=== PATIENT | female | born 1990 | race African-American/Black ===

== ENCOUNTER 2020-01-01 09:46 | Outpatient (REF) | payer MEDICAID, SELFPAY | END 2020-01-01 09:47 | disposition home or self-care (01) | LOC: HO.LAB 09:46 | PROVIDERS: Visit Provider Internal Medicine | DX: Z20.828 Contact with and (suspected) exposure to other viral communicable diseases (principal) | CPT/HCPCS: C9803; U0003 ==

== ENCOUNTER 2020-06-20 16:47 | Emergency (ER) | payer MEDICAID, SELFPAY ==
[2020-06-20 17:12] VITALS: BP 140/75; PULSE 98; RESP 16; TEMP 36.5; O2SAT 98; BMI 35.6
--- NOTE | 2020-06-20 17:35 | ED_ITS ---
HPI - Dental/Oral General Chief complaint: Dental/Oral Stated complaint: DENTAL PAIN Time Seen by Provider: 06/20/20 17:35 History of Present Illness HPI Narrative: Patient complains of right rear lower molar pain, she broke the tooth sometime back and it started hurting a few days, pain is mild, no fever no chills no drooling She is 18 weeks , but all is going well with no vomiting no abdominal pain no pelvic pain no bleeding Related Data Previous Rx's Medication Instructions Recorded penicillin V potassium 500 mg PO QID 7 Days #28 tab 06/20/20 Allergies Allergy/AdvReac Type Severity Reaction Status Date / Time No Known Allergies Allergy Verified 06/20/20 17:17 Review of Systems Review of Systems: Positive for tooth pain Negatives are no fever no chills no dizziness no weakness no difficulty breathing or swallowing no swelling under the tongue no rash no chest pain no shortness of breath no neck pain Yes all other systems are reviewed and are negative PMFSH Past Medical History Source: nursing notes reviewed Social History Social History Alcohol intake: never Smoked in Last 30 Days: No Use of substances other than those prescribed or required for medical reasons: No Any prior treatment program specific to substance use: No Advance Directives: No Advance Directives Information Provided: No Patient : Yes Physical Exam Vital Signs: Vital Signs: Last Vital Signs Temp 97.7 F 06/20/20 17:12 Pulse 98 06/20/20 17:12 Resp 16 06/20/20 17:12 BP 140/75 H 06/20/20 17:12 Pulse Ox 98 06/20/20 17:12 Body Mass Index 35.6 General appearance no acute distress, and cooperative The pharynx is clear with no redness swelling or exudate, mucous membranes are moist Dental exam did have some right back molar tenderness but there is no fluctuant abscess on the gum, there is no facial swelling there is no redness or warmth to the skin there is no drooling the voice is normal, no trismus, no tenderness or swelling under the tongue Skin no rash Course Course Course Narrative: Well-appearing patient with no complaints related to the and does have OB follow-up is prescribed antibiotic recommend follow with dentist and project management engineer doctor and is discharged Discharge Plan Discharge Clinical Impression: Dental caries Patient Disposition: Home, Self-Care Additional Instructions: Follow with dentist Return any time any concerns Prescriptions: New penicillin V potassium 500 mg tablet 500 mg PO QID 7 Days Qty: 28 RF: 0 Interventions: ED Discharge Assessment Last Done: 06/20/20 17:46 Discharge Date/Time: 06/20/20 17:49
== END 2020-06-20 17:49 | disposition home or self-care (01) ==
PROVIDERS: Emergency Provider Emergency Medicine; PCP Family Medicine
DX: K08.89 Other specified disorders of teeth and supporting structures (principal); K02.9 Dental caries, unspecified
CPT/HCPCS: 99283; 99284

== ENCOUNTER 2020-10-05 21:54 | Emergency (ER) | payer MEDICAID, SELFPAY ==
[2020-10-05 22:14] VITALS: BP 135/61; PULSE 104; RESP 18; TEMP 36.7; O2SAT 98; BMI 37.2
[2020-10-05 23:15] LABS: Influenza A PCR NEGATIVE (Negative); Influenza B PCR NEGATIVE (Negative); Resp Syncy Virus RNA Qual PCR NEGATIVE (Negative); SARS COV2 PCR INHOUSE NEGATIVE (Negative)
--- NOTE | 2020-10-05 23:41 | ED_ITS ---
HPI - Asthma General Chief Complaint: Upper Respiratory Symptoms Stated Complaint: cough Time Seen by Provider: 10/05/20 23:41 Source: patient Mode of arrival: ambulatory History of Present Illness HPI Narrative: 30-year-old female, gravid, , presents with increasing shortness of breath over the past couple of days without associated fevers, chills, nausea, vomiting. Patient states that this has been a regular presentation for her for her asthma exacerbation and states that she generally comes in and receive some steroids with subsequent improvement. Related Data Previous Rx's Medication Instructions Recorded penicillin V potassium 500 mg 500 mg PO QID 7 Days #28 tab 06/20/20 tablet prednisone 20 mg tablet 40 mg PO DAILY 4 Days #8 tab 10/06/20 Allergies Allergy/AdvReac Type Severity Reaction Status Date / Time No Known Allergies Allergy Verified 10/05/20 22:13 Review of Systems Review of Systems: Pertinent positives and negatives as stated in HPI 10 point review of systems is otherwise negative. PMFSH Past Medical History Source: nursing notes reviewed Social History Social History Alcohol intake: never Advance Directives: No Advance Directives Information Provided: Yes Patient : Yes Physical Exam Vital Signs: Vital Signs: Last Vital Signs Temp 98.1 F 10/05/20 22:14 Pulse 104 H 10/05/20 22:14 Resp 18 10/05/20 22:14 BP 135/61 10/05/20 22:14 Pulse Ox 98 10/05/20 22:14 Body Mass Index 37.2 VITAL SIGNS: Reviewed. GENERAL: Well developed, well nourished, in no acute distress. HEAD: Normocephalic/atraumatic EYES: PERRLA, EOMI OROPHARYNX: no oral lesions noted, posterior pharynx clear NECK: Supple, no adenopathy LUNGS: Normal breath sounds with some noted bilateral wheeze on expiration but not tachypneic. SpO2<98> CARDIOVASCULAR: Regular rate and rhythm without noted murmurs ABDOMEN: Gravid, Soft, non-tender, non-distended with bowel sounds. SKIN: Inspection of the skin reveals no rashes NEUROLOGIC: Alert and oriented x 4. Strength and sensation to light touch were grossly intact x 4. Course Course Course Narrative: 30-year-old female with history and clinical presentation most consistent with mild asthma exacerbation and patient will receive Ventolin, 4 puffs as well as 40 mg prednisone. Review of COVID testing is negative. Patient discharged home in stable condition with instructions to follow-up with her primary care provider and global creative chairman on Wednesday. MDM - Asthma Lab Data Labs: Lab Results 10/05/20 Range/Units 22:19 Coronavirus (PCR) NEGATIVE (Negative) Influenza Type A (PCR) NEGATIVE (Negative) Influenza Type B (PCR) NEGATIVE (Negative) RSV RNA Qual (PCR) NEGATIVE (Negative) Discharge Plan Discharge Clinical Impression: Asthma exacerbation Patient Disposition: Home, Self-Care Instructions: Loratadine (By mouth), Fluticasone (Into the nose), Asthma (ED) Additional Instructions: 1. Please consistently use your inhaler for the next 24-48 hours. 2. Recommend starting daily Claritin with Flonase for added asthma control. 3. Follow-up with your global creative chairman and primary care provider on Wednesday for re-evaluation. Return to the ER for acute worsening of your symptoms. Prescriptions: New prednisone 20 mg tablet 40 mg PO DAILY 4 Days Qty: 8 RF: 0 No Action penicillin V potassium 500 mg tablet 500 mg PO QID 7 Days Qty: 28 RF: 0 Referrals: Constance Garza MD [Primary Care Provider] - 2 days
[2020-10-06] MEDS: Albuterol Sulfate 90 MCG 8 GM INHALER 4 PUFF INHALE (00:03)
[2020-10-06] MEDS: predniSONE 20 MG TABLET 40 MG PO (00:03)
--- NOTE | 2020-10-06 00:04 | PC.NURSE ---
pt medicated as per emar.
== END 2020-10-06 00:39 | disposition home or self-care (01) ==
PROVIDERS: Emergency Provider Student in an Organized Health Care Education/Training Program; PCP Family Medicine
DX: J45.901 Unspecified asthma with (acute) exacerbation (principal); Z20.822 Contact with and (suspected) exposure to COVID-19; F17.210 Nicotine dependence, cigarettes, uncomplicated
CPT/HCPCS: 0241U; 36415; 99282; 99283

== ENCOUNTER 2020-10-09 05:53 | Emergency (ER) | payer MEDICAID, SELFPAY ==
--- NOTE | ~2020-10-09 | XR_ITS ---
EXAMINATION: PORTABLE CHEST 1 VIEW CLINICAL INFORMATION: dyspnea 34 weeks . COMPARISON: 09/25/2019. TECHNIQUE: Portable frontal view of the chest was obtained. FINDINGS: Lungs are hypoexpanded with patchy bilateral airspace disease bilaterally. This is new when compared to the prior study. Etiology of this is uncertain. Infectious or inflammatory etiologies would be favored. Atelectasis considered less likely. Cardiac and mediastinal silhouettes within normal limits for size. XR/XR chest 1V IMPRESSION: Patchy bilateral airspace disease seen. Infectious etiology suspected in this setting.
[2020-10-09 06:33] VITALS: BP 135/79; PULSE 113; RESP 18; TEMP 36.9; O2SAT 95; BMI 99.8
--- NOTE | 2020-10-09 06:36 | ED.SOB ---
HPI - SOB/Dyspnea General Chief Complaint: Upper Respiratory Symptoms Stated Complaint: SOB Time Seen by Provider: 10/09/20 06:36 Source: patient Mode of arrival: ambulatory Limitations: no limitations History of Present Illness MD elicited complaint: shortness of breath and cough Pertinent past history: asthma Onset (ago): day(s) (5) Context: other (34 weeks states her asthma has been acting up) Timing: intermittent Severity: moderate Exacerbating factors: exertion (any time she walks she starts coughing and feels short of breath) Relieving factors: rest Known history of: asthma Associated symptoms: cough and wheezing Treatment prior to arrival: other (seen here Wednesday almost completed 5 day course of steroids, uses INH as needed, no neb machine, negative COVID recentyl) Related Data Previous Rx's Medication Instructions Recorded penicillin V potassium 500 mg 500 mg PO QID 7 Days #28 tab 06/20/20 tablet prednisone 20 mg tablet 40 mg PO DAILY 4 Days #8 tab 10/06/20 Allergies Allergy/AdvReac Type Severity Reaction Status Date / Time No Known Allergies Allergy Verified 10/05/20 22:13 [facility] Past Medical History Attestation statement: The following information was validated with the patient. Medical History Asthma Social History Social History (Updated 10/09/20 @ 07:04 by Ankita Castillo DO) Alcohol intake: never Patient Tobacco Use Status: Current someday Tobacco user Advance Directives: No Patient : Yes Physical Exam Vital Signs: Vital Signs: Last Vital Signs Temp 98.5 F 10/09/20 06:33 Pulse 108 H 10/09/20 11:04 Resp 22 H 10/09/20 11:04 BP 130/61 10/09/20 11:04 Pulse Ox 90 L 10/09/20 11:04 Body Mass Index 99.8 Appearance: Alert. Oriented X3. No acute distress. Eyes: Pupils equal, round and reactive to light. pale conjunctiva ENT: Pharynx normal. Neck: Normal inspection. Neck supple. CVS: Normal heart rate and rhythm. Pulses normal. Respiratory: No respiratory distress. Breath sounds coarse on exam Abdomen: Soft and non-tender. gravid uterus Skin: Skin warm and dry. Normal skin color. Normal skin turgor. Extremities: No lower extremity edema. No calf ttp Neuro: Oriented X 3. No motor deficit. No sensory deficit. Course Course Course Narrative: repeat neb ordered, more wheezing after initial neb and feels short of breath, IV steroids ordered WBC count likely reactive to her prednisone dosing at home given CXR repeat PCR sent off as well as cultures, lactic acid started on ceftriaxone and azithromycin for pneumonia - 815am, 92% on RA, placed on 2L NC up to 96% FHT 152, good movement call to [facility] transfer line for pneumonia 917am. Discussion with OB at [facility] - unsure if they can take the patient given closed to medical admits discussed with hospitalist staff at [facility] and accepts transfer - hospitalist [facility] 1039 bed placement called with transfer 12pm MDM - SOB/Dyspnea MDM Narrative Medical decision making narrative: 30 yo female 3 with hx of asthma 34 weeks unvaccinated comes in with c/o shortness of breath x 5 days and cough - she has no CP, she was just negative for COVID, at this time labs, bnp, CXR for pneumonia, CBC for anemia, neb treatment - she doesn't have signs of clinical volume overload, she has no signs of DVT and she has no CP it seems unlikely to be PE. Blood pressure stable as well. Reports no OBGYN complaints Lab Data Result diagrams: 10/09/20 07:17 10/09/20 07:17 Labs: Lab Results 10/09/20 10/09/20 10/09/20 Range/Units 06:58 07:17 07:17 WBC 18.7 H (4.8-10.8) X10*3/uL RBC 3.39 L (4.20-5.50) X10*6/uL Hgb 9.6 L (12.0-16.0) g/dl Hct 28.8 L (37-47) % MCV 85.0 (80-98) fL MCH 28.3 (27.0-33.0) pg MCHC 33.3 (31.0-35.0) g/dl RDW 15.2 (11.0-16.0) % Plt Count 316 (160-400) X10*3/uL MPV 9.8 (9.4-12.3) fL Immature Gran % (Auto) 0.7 H (0.0-0.4) % Neut % (Auto) 75.7 H (45-73) % Lymph % (Auto) 15.2 L (20-40) % [place] % (Auto) 8.2 (2-11) % Eos % (Auto) 0.1 (0-4) % Baso % (Auto) 0.1 (0-2) % Lymph # (Auto) 2.9 (1.2-4.9) X10*3/uL [place] # (Auto) 1.5 H (0.1-1.2) X10*3/uL Eos # (Auto) 0.0 (0.0-0.4) X10*3/uL Baso # (Auto) 0.0 (0.0-0.2) X10*3/uL Abs Immat Gran (auto) 0.14 H (0.00-0.03) X10*3/uL Absolute Neuts (auto) 14.1 H (2.0-8.3) X10*3/uL Absolute Nucleated RBC 0.020 H (0.0-0.012) X10*3/uL Nucleated RBC % (auto) 0.1 (0.0-0.2) /100WBC Smear Tech's Comments VERIFIED Sodium 135 (135-145) mmol/L Potassium 3.1 L (3.3-5.1) mmol/L Chloride 107 (96-108) mmol/L Carbon Dioxide 18 L (22-29) mmol/L Anion Gap 13 (12-20) BUN 4 L (9-16) mg/dL Creatinine 0.57 (0.5-1.4) mg/dL Estim Creat Clear Calc 85.4 Estimated GFR > 60 Random Glucose 102 (60-115) mg/dL Lactic Acid (0.5-2.0) mmol/L Lactic Acid Fup @ 2Hr (0.5-2.0) mmol/L Calcium 9.1 (8.4-10.2) mg/dL Magnesium 1.7 (1.6-2.6) mg/dL Total Bilirubin 0.4 (0.0-1.0) mg/dL Direct Bilirubin < 0.2 (0.0-0.5) mg/dL AST 12 (5-31) U/L ALT 17 (0-31) U/L Alkaline Phosphatase 139 H (39-117) U/L Troponin I High Sens (<3.5-17.0) ng/L B-Natriuretic Peptide (<100) pg/mL Total Protein 6.4 L (6.5-8.0) g/dL Albumin 3.5 (3.5-5.0) g/dL Urine Color Urine Appearance Urine pH (5.0-8.0) Ur Specific [place] (1.005-1.025) Urine Protein (NEG-TRACE) MG/DL Urine Glucose (UA) (NEG) MG/DL Urine Ketones (NEG) MG/DL Urine Blood (NEG) Urine Nitrite (NEG) Ur Leukocyte Esterase (NEG) Urine RBC (0) /HPF Urine WBC (0-4) /HPF Ur Squamous Epith Cells /LPF Urine Bacteria /LPF Coronavirus (PCR) (Negative) COVID-19 (KIERAN) Negative (Negative) COVID-19 Clin Com See Note Influenza Type A (PCR) (Negative) Influenza Type B (PCR) (Negative) RSV RNA Qual (PCR) (Negative) 10/09/20 10/09/20 10/09/20 Range/Units 07:17 07:51 08:23 WBC (4.8-10.8) X10*3/uL RBC (4.20-5.50) X10*6/uL Hgb (12.0-16.0) g/dl Hct (37-47) % MCV (80-98) fL MCH (27.0-33.0) pg MCHC (31.0-35.0) g/dl RDW (11.0-16.0) % Plt Count (160-400) X10*3/uL MPV (9.4-12.3) fL Immature Gran % (Auto) (0.0-0.4) % Neut % (Auto) (45-73) % Lymph % (Auto) (20-40) % [place] % (Auto) (2-11) % Eos % (Auto) (0-4) % Baso % (Auto) (0-2) % Lymph # (Auto) (1.2-4.9) X10*3/uL [place] # (Auto) (0.1-1.2) X10*3/uL Eos # (Auto) (0.0-0.4) X10*3/uL Baso # (Auto) (0.0-0.2) X10*3/uL Abs Immat Gran (auto) (0.00-0.03) X10*3/uL Absolute Neuts (auto) (2.0-8.3) X10*3/uL Absolute Nucleated RBC (0.0-0.012) X10*3/uL Nucleated RBC % (auto) (0.0-0.2) /100WBC Smear Tech's Comments Sodium (135-145) mmol/L Potassium (3.3-5.1) mmol/L Chloride (96-108) mmol/L Carbon Dioxide (22-29) mmol/L Anion Gap (12-20) BUN (9-16) mg/dL Creatinine (0.5-1.4) mg/dL Estim Creat Clear Calc Estimated GFR Random Glucose (60-115) mg/dL Lactic Acid 2.8 H* (0.5-2.0) mmol/L Lactic Acid Fup @ 2Hr (0.5-2.0) mmol/L Calcium (8.4-10.2) mg/dL Magnesium (1.6-2.6) mg/dL Total Bilirubin (0.0-1.0) mg/dL Direct Bilirubin (0.0-0.5) mg/dL AST (5-31) U/L ALT (0-31) U/L Alkaline Phosphatase (39-117) U/L Troponin I High Sens < 3.5 (<3.5-17.0) ng/L B-Natriuretic Peptide 20 (<100) pg/mL Total Protein (6.5-8.0) g/dL Albumin (3.5-5.0) g/dL Urine Color Urine Appearance Urine pH (5.0-8.0) Ur Specific [place] (1.005-1.025) Urine Protein (NEG-TRACE) MG/DL Urine Glucose (UA) (NEG) MG/DL Urine Ketones (NEG) MG/DL Urine Blood (NEG) Urine Nitrite (NEG) Ur Leukocyte Esterase (NEG) Urine RBC (0) /HPF Urine WBC (0-4) /HPF Ur Squamous Epith Cells /LPF Urine Bacteria /LPF Coronavirus (PCR) NEGATIVE (Negative) COVID-19 (KIERAN) (Negative) COVID-19 Clin Com Influenza Type A (PCR) NEGATIVE (Negative) Influenza Type B (PCR) NEGATIVE (Negative) RSV RNA Qual (PCR) NEGATIVE (Negative) 10/09/20 10/09/20 Range/Units 11:05 11:06 WBC (4.8-10.8) X10*3/uL RBC (4.20-5.50) X10*6/uL Hgb (12.0-16.0) g/dl Hct (37-47) % MCV (80-98) fL MCH (27.0-33.0) pg MCHC (31.0-35.0) g/dl RDW (11.0-16.0) % Plt Count (160-400) X10*3/uL MPV (9.4-12.3) fL Immature Gran % (Auto) (0.0-0.4) % Neut % (Auto) (45-73) % Lymph % (Auto) (20-40) % [place] % (Auto) (2-11) % Eos % (Auto) (0-4) % Baso % (Auto) (0-2) % Lymph # (Auto) (1.2-4.9) X10*3/uL [place] # (Auto) (0.1-1.2) X10*3/uL Eos # (Auto) (0.0-0.4) X10*3/uL Baso # (Auto) (0.0-0.2) X10*3/uL Abs Immat Gran (auto) (0.00-0.03) X10*3/uL Absolute Neuts (auto) (2.0-8.3) X10*3/uL Absolute Nucleated RBC (0.0-0.012) X10*3/uL Nucleated RBC % (auto) (0.0-0.2) /100WBC Smear Tech's Comments Sodium (135-145) mmol/L Potassium (3.3-5.1) mmol/L Chloride (96-108) mmol/L Carbon Dioxide (22-29) mmol/L Anion Gap (12-20) BUN (9-16) mg/dL Creatinine (0.5-1.4) mg/dL Estim Creat Clear Calc Estimated GFR Random Glucose (60-115) mg/dL Lactic Acid (0.5-2.0) mmol/L Lactic Acid Fup @ 2Hr 2.0 (0.5-2.0) mmol/L Calcium (8.4-10.2) mg/dL Magnesium (1.6-2.6) mg/dL Total Bilirubin (0.0-1.0) mg/dL Direct Bilirubin (0.0-0.5) mg/dL AST (5-31) U/L ALT (0-31) U/L Alkaline Phosphatase (39-117) U/L Troponin I High Sens (<3.5-17.0) ng/L B-Natriuretic Peptide (<100) pg/mL Total Protein (6.5-8.0) g/dL Albumin (3.5-5.0) g/dL Urine Color YELLOW Urine Appearance CLOUDY Urine pH 6.0 (5.0-8.0) Ur Specific [place] 1.020 (1.005-1.025) Urine Protein TRACE (NEG-TRACE) MG/DL Urine Glucose (UA) NEG (NEG) MG/DL Urine Ketones 15 (NEG) MG/DL Urine Blood NEG (NEG) Urine Nitrite NEG (NEG) Ur Leukocyte Esterase 3+ H (NEG) Urine RBC 1-4 (0) /HPF Urine WBC 10-14 H (0-4) /HPF Ur Squamous Epith Cells 2+ /LPF Urine Bacteria 1+ /LPF Coronavirus (PCR) (Negative) COVID-19 (KIERAN) (Negative) COVID-19 Clin Com Influenza Type A (PCR) (Negative) Influenza Type B (PCR) (Negative) RSV RNA Qual (PCR) (Negative) ECG Data Attestation: I personally reviewed and interpreted this ECG as follows: ECG interpretation date: 10/09/20 ECG interpretation time: 07:36 Interpretation: Rate: 116 Rhythm: sinus tachycardia [place]: normal Normal P waves. Normal EAMON. Normal QRS complex. ST T wave : inverted t waves inf leads, V3 and flat V4-V5 qTC: normal prior studies: no sig change from Sep 2019 The study has been interpreted contemporaneously by me. . Critical Care Time Critical Care Time Critical Care Time: Yes Total Critical Care Time: 60 Attestation: repeat neb treatments, IV antibiotics, transfer to tertiary center I attest to this time spent taking care of the patient Discharge Plan Discharge Clinical Impression: Hypoxia Asthma Qualifiers: Asthma severity: moderate Asthma persistence: persistent Asthma complication type: with acute exacerbation Qualified Code(s): J45.41 - Moderate persistent asthma with (acute) exacerbation Pneumonia Qualifiers: Pneumonia type: due to unspecified organism Laterality: bilateral Lung location: unspecified part of lung Qualified Code(s): J18.9 - Pneumonia, unspecified organism Patient Disposition: [facility] Transfer Details: [facility] Prescriptions: No Action penicillin V potassium 500 mg tablet 500 mg PO QID 7 Days Qty: 28 RF: 0 prednisone 20 mg tablet 40 mg PO DAILY 4 Days Qty: 8 RF: 0
--- NOTE | 2020-10-09 06:50 | ECG_ITS ---
Test Reason : UPPER RESP Blood Pressure : / mmHG Vent. Rate : 116 BPM Atrial Rate : 116 BPM P-R Int : 138 ms QRS Dur : 092 ms QT Int : 326 ms P-R-T Axes : 046 047 -27 degrees QTc Int : 453 ms Sinus tachycardia with Premature supraventricular complexes T wave abnormality, consider inferior ischemia T wave abnormality, consider anterolateral ischemia Abnormal ECG When compared with ECG of 25-SEP-2019 18:10, Premature supraventricular complexes are now Present Referred By: Ankita Castillo Electronically Signed By:WOJCIECH MCFADDEN
[2020-10-09 06:51] VITALS: BP 120/69; PULSE 112; RESP 27; O2SAT 95
[2020-10-09 07:18] LABS: COVID-19 Test Negative (Negative); IDNOW Serial# 55D5AD1C
[2020-10-09] MEDS: Albuterol Sulfate (0.083%) 2.5 MG/3 ML VIAL.NEB INHALE ×2 (07:29→07:54)
[2020-10-09 07:31] VITALS: PULSE 100; O2SAT 95
[2020-10-09 07:32] LABS: Basophils Percent Auto 0.1 % (0-2); Eosinophils Percent Auto 0.1 % (0-4); Hematocrit 28.8 % (37-47); Hemoglobin 9.6 g/dl (12.0-16.0); Imm Gran Abs Auto 0.14 X10*3/uL (0.00-0.03); Imm Gran Pct Auto 0.7 % (0.0-0.4); Lymphocytes Absolute Auto 2.9 X10*3/uL (1.2-4.9); Lymphocytes Percent Auto 15.2 % (20-40); MANUAL DIFF FLAG SCAN; Mean Corpuscular HGB Conc 33.3 g/dl (31.0-35.0); Mean Corpuscular Hemoglobin 28.3 pg (27.0-33.0); Mean Platelet Volume 9.8 fL (9.4-12.3); Monocytes Absolute Auto 1.5 X10*3/uL (0.1-1.2); Monocytes Percent Auto 8.2 % (2-11); NRBC Pct Auto 0.1 /100WBC (0.0-0.2); Neutrophils Absolute Auto 14.1 X10*3/uL (2.0-8.3); Neutrophils Percent Auto 75.7 % (45-73); Platelet Count 316 X10*3/uL (160-400); Red Blood Count 3.39 X10*6/uL (4.20-5.50); Red Cell Distribution Width 15.2 % (11.0-16.0); SCAN SMEAR FLAG 1; White Blood Count 18.7 X10*3/uL (4.8-10.8)
[2020-10-09 07:48] LABS: B Type Natriuretic Peptide 20 pg/mL (<100); Troponin-I High Sensitivity < 3.5 ng/L (<3.5-17.0)
[2020-10-09 07:50] LABS: Alanine Aminotransferase 17 U/L (0-31); Albumin Level 3.5 g/dL (3.5-5.0); Alkaline Phosphatase 139 U/L (39-117); Anion Gap 13 (12-20); Aspartate Amino Transferase 12 U/L (5-31); Bilirubin Direct < 0.2 mg/dL (0.0-0.5); Bilirubin Total 0.4 mg/dL (0.0-1.0); Blood Urea Nitrogen 4 mg/dL (9-16); Calcium 9.1 mg/dL (8.4-10.2); Carbon Dioxide 18 mmol/L (22-29); Chloride 107 mmol/L (96-108); Creatinine Clr Calc Pharmacy 85.4; Estimated Glomerular Filt Rate > 60; Glucose Random 102 mg/dL (60-115); Magnesium 1.7 mg/dL (1.6-2.6); Potassium 3.1 mmol/L (3.3-5.1); Sodium 135 mmol/L (135-145); Total Protein 6.4 g/dL (6.5-8.0)
[2020-10-09 07:54] VITALS: PULSE 117; O2SAT 5
[2020-10-09 08:00] VITALS: BP 120/69; PULSE 112; RESP 22; O2SAT 94
[2020-10-09 08:08] LABS: SLIDE REVIEW VERIFIED
[2020-10-09] MEDS: methylPREDNISolone Sod Succ 125 MG/2 ML VIAL IVPUSH (08:26)
[2020-10-09] MEDS: Potassium Chloride ER 20 MEQ TAB.ER.PRT PO (08:27)
[2020-10-09] MEDS: cefTRIAXone sodium 1 GM in 0.9 % Sodium Chloride 50 ML IV (08:34)
[2020-10-09] MEDS: Azithromycin 500 MG in 0.9 % Sodium Chloride 250 ML 125 MG IV (08:52)
[2020-10-09 08:56] LABS: Lactic Acid 2.8 mmol/L (0.5-2.0)
[2020-10-09 09:02] LABS: Influenza A PCR NEGATIVE (Negative); Influenza B PCR NEGATIVE (Negative); Resp Syncy Virus RNA Qual PCR NEGATIVE (Negative); SARS COV2 PCR INHOUSE NEGATIVE (Negative)
--- NOTE | 2020-10-09 09:16 | PC.NURSE ---
@ 6869 DR GAMBOA REQUESTS CALL PLACED TO [facility] FOR TX OF THIS PT MJ ANSWERS,TAKES PT INFO AND CALL BACK NUMBER THEN ASKS FOR DR BEE GAMBOA TAKES OVER CALL RIGHT AWAY
[2020-10-09 10:27] LABS: Reflex Lactate? Lactic Acid Added
[2020-10-09 11:04] VITALS: BP 130/61; PULSE 108; RESP 22; O2SAT 90
[2020-10-09 11:16] LABS: Appearance Urine CLOUDY; Color Urine YELLOW; Glucose Urine UA NEG (NEG); Leukocyte Esterase Urine 3+ (NEG); Nitrite Urine NEG (NEG); UACC Culture Trigger YES; Urine Blood NEG (NEG); Urine Ketones 15 MG/DL (NEG); Urine Protein TRACE MG/DL (NEG-TRACE)
[2020-10-09] MEDS: Lactated Ringers 1,000 ML 999 ML IV (11:17)
[2020-10-09 11:24] LABS: Bacteria Urine 1+ /LPF; Squamous Epithelial Cell Urine 2+ /LPF
--- NOTE | 2020-10-09 11:50 | PC.NURSE ---
received call with patient assignment at 1145 for [facility]. number and information given to [place] RN for report. Faxed over facesheet at [phone]
--- NOTE | 2020-10-09 12:12 | PC.NURSE ---
Report given to Mena CONDE [place] 1 room 1820
--- NOTE | 2020-10-09 12:17 | PC.NURSE ---
1216 action dispatch contacted and booked ALS transport. Extended ETA due to all ambulances tied up at the moment. Truck will be en route EVIE per Lillie in action dispatch
== END 2020-10-09 12:30 | disposition short-term general hospital (02) ==
PROVIDERS: Emergency Provider Emergency Medicine; PCP Family Medicine
DX: O99.513 Diseases of the respiratory system complicating pregnancy, third trimester (principal); J18.9 Pneumonia, unspecified organism; J45.41 Moderate persistent asthma with (acute) exacerbation; R06.02 Shortness of breath; Z3A.34 34 weeks gestation of pregnancy; Z20.822 Contact with and (suspected) exposure to COVID-19; Z87.891 Personal history of nicotine dependence
CPT/HCPCS: 0241U; 36415; 71045; 80048; 80076; 81001; 83605; 83735; 83880; 84484; 85025; 87040; 87086; 87635; 93005; 94640; 96361; 96365; 96367; 96375; 99285; 99291; J0456; J0696; J2930

== ENCOUNTER 2023-06-15 10:23 | Outpatient (REF) | payer MEDICAID, SELFPAY ==
[2023-06-15 11:52] LABS: MANUAL DIFF FLAG NO
[2023-06-15 12:07] LABS: Estimated Average Glucose 105 mg/dL; Hemoglobin A1c % 5.3 % (<6.0)
[2023-06-15 12:08] LABS: Basophils Percent Auto 0.3 % (0-2); Eosinophils Absolute Auto 0.2 X10*3/uL (0.0-0.4); Eosinophils Percent Auto 2.9 % (0-4); Hematocrit 41.1 % (37.0-47.0); Hemoglobin 13.7 g/dl (12.0-16.0); Imm Gran Abs Auto 0.02 X10*3/uL (0.00-0.03); Imm Gran Pct Auto 0.3 % (0.0-0.4); Lymphocytes Absolute Auto 2.5 X10*3/uL (1.2-4.9); Lymphocytes Percent Auto 42.3 % (20-40); Mean Corpuscular HGB Conc 33.3 g/dl (31.0-35.0); Mean Corpuscular Hemoglobin 29.1 pg (27.0-33.0); Mean Corpuscular Volume 87.4 fL (80.0-98.0); Mean Platelet Volume 10.1 fL (9.4-12.3); Monocytes Absolute Auto 0.5 X10*3/uL (0.1-1.2); Monocytes Percent Auto 8.9 % (2-11); Neutrophils Absolute Auto 2.7 x10*3/uL (2.0-8.3); Neutrophils Percent Auto 45.3 % (45-73); Platelet Count 363 X10*3/uL (160-400); Red Cell Distribution Width 14.6 % (11.0-16.0)
[2023-06-15 12:34] LABS: Rheumatoid Factor < 13.0 IU/mL (<15.0)
[2023-06-15 12:50] LABS: Alanine Aminotransferase 24 U/L (0-31); Albumin Level 4.1 g/dL (3.5-5.0); Alkaline Phosphatase 71 U/L (39-117); Anion Gap 11 (12-20); Aspartate Amino Transferase 16 U/L (5-31); Bilirubin Direct 0.2 mg/dL (0.0-0.5); Bilirubin Total 0.5 mg/dL (0.0-1.0); Blood Urea Nitrogen 12 mg/dL (9-16); C Reactive Protein 0.47 mg/dL (< or = 0.50); Calcium 9.5 mg/dL (8.4-10.2); Carbon Dioxide 23 mmol/L (22-29); Chloride 111 mmol/L (96-108); Cholesterol 161 mg/dL (<200); Estimated Glomerular Filt Rate > 60; Glucose Random 85 mg/dL (60-115); HDL Cholesterol 43 mg/dL (>40); LDL Cholesterol Calculated 105 mg/dL (<100); Potassium 4.2 mmol/L (3.3-5.1); Sodium 141 mmol/L (135-145); Total Protein 7.7 g/dL (6.5-8.0); Triglycerides 66 mg/dL (<150)
[2023-06-15 12:51] LABS: TSH reflex Free T4 2.08 uIU/mL (0.32-4.0); Vitamin D 25-OH Total 15.5 ng/mL (>30)
[2023-06-15 12:59] LABS: Erythrocyte Sedimentation Rate 6 MM/HR (0-20)
[2023-06-15 13:15] LABS: CT PCR NOT DETECTED (Not Detect.); NG PCR NOT DETECTED (Not Detect.)
[2023-06-16 09:08] LABS: HIV AB/AG Nonreactive (Nonreactive); HIV Num 1 0.05 S/CO (0.00-0.99); ~HepC Num1 0.12 S/CO (0.00-0.79); ~Hepatitis C Antibody Nonreactive (Nonreactive)
[2023-06-16 11:14] LABS: RPR Rapid Plasma Reagin NON-REACTIVE (NON-REACTIVE)
[2023-06-17 07:28] LABS: Anti DNA DS Antibody <1 IU/mL
[2023-06-18 15:33] LABS: Anti Nuclear Antibody Screen NEGATIVE (NEGATIVE)
== END 2023-06-15 10:24 | disposition home or self-care (01) ==
LOC: HO.HHCL 10:23
PROVIDERS: Visit Provider Family Medicine
DX: Z11.3 Encounter for screening for infections with a predominantly sexual mode of transmission (principal); Z11.4 Encounter for screening for human immunodeficiency virus [HIV]; E66.9 Obesity, unspecified; R05.9 Cough, unspecified; E55.9 Vitamin D deficiency, unspecified; M79.641 Pain in right hand; M79.642 Pain in left hand; Z86.32 Personal history of gestational diabetes
CPT/HCPCS: 0353U; 36415; 80048; 80061; 80076; 82306; 83036; 84443; 85025; 85652; 86038; 86140; 86225; 86431; 86592; 86803; 87389

== ENCOUNTER 2023-08-03 19:38 | Outpatient (REF) | payer MEDICAID, SELFPAY ==
[2023-08-06 17:03] LABS: HPV mRNA E6/E7 Not Detected (Not Detected)
== END 2023-08-03 19:39 | disposition home or self-care (01) ==
LOC: HO.HHCLNP 19:38
PROVIDERS: Visit Provider Advanced Practice Midwife
DX: Z12.4 Encounter for screening for malignant neoplasm of cervix (principal)
CPT/HCPCS: 36415; 87624; 88175

== ENCOUNTER 2024-03-28 13:39 | Outpatient (REF) | payer MEDICAID, SELFPAY ==
--- OUTSIDE RECORDS SUMMARY | 2024-03-28 14:37 | XMS_ITS | Clinical Summary ---
Author Organization [employer] [facility] ity Address [address] [place] [address] Care Team Providers Care Credit Historian Name Role Phone Unavailable Primary Care Provider Unavailabl e Surgical History Surgery Date Site/Laterality Comments OTHER SURGICAL HISTORY PROCEDURE: ---- OTHER ----; COMMENT: removal of pilonidal cyst Medical History Medical History Date Comments Elevated glucose tolerance test 11/01/2019 DX:Elevated glucose tolerance test; COMMENT: Did njot do 3 hr GTT, checking BS QID Tobacco smoking affecting 11/01/2019 DX:Tobacco smoking affecting ; COMMENT: Smoking 9-10 cig/day Asthma affecting i n third trimester 11/01/2019 DX:Asthma affecting pregnanc y in third trimester Hx of migraines 11/01/2019 DX:Hx of migrain es Family History Medical History Relation Name Comments Asthma Mother Other: lupus Mother Breast cancer Paternal Grandmother Relation Name Status Comments Father Alive Maternal Grandmother Alive Mother Alive Paternal Grandmother Social History Tobacco Use Types Packs/Day Years Used Date Smoking Tobacco: Never Assessed Comments Unknown Sex and Gender Information Value Date Recorded Sex Assigned at Not on file Legal Sex Female 12:15 AM EST Gender Identity Not on file Sexual Orientation Not on file Obstetrics History Plan of Treatment Health Maintenance Due Date Last Done Comments DTaP,Tdap,and Td Vaccines (1 - Tdap) 2009 Hepatitis B Vaccines (1 of 3 - 19+ 3-dose series) 2009 Cervical Cancer Screening: P ap Smear 2011 COVID-19 Vaccine (2023-2 5 season) 2023 Influenza Vaccine (#1) 2023 HIB Vaccines Aged Out No longer eligi ble based on patient's age to complete this topic HPV Vaccines Aged Out No longer eligi ble based on patient's age to complete this topic Hepatitis A Vaccines Aged Out No long er eligible based on patient's age to complete this topic IPV Vaccines Aged Out No longer eligi ble based on patient's age to complete this topic MMR Vaccines Aged Out No longer eligi ble based on patient's age to complete this topic Meningococcal ACWY Vaccine Aged Out N o longer eligible based on patient's age to complete this topic Meningococcal B Vacine Aged Out No lo nger eligible based on patient's age to complete this topic Pneumococcal Vaccine: Pediat rics (0 to 5 Years) and At-Risk Patients (6 to 64 Years) Aged Out No longer eligible b ased on patient's age to complete this topic RSV Immunization Patients Un idalmis 20 months Aged Out No longer eligible b ased on patient's age to complete this topic Varicella Vaccines Aged Out No longer eligible based on patient's age to complete this topic
--- OUTSIDE RECORDS SUMMARY | 2024-03-28 14:37 | XMS_ITS | Encounter Summary ---
Author Organization [employer] Address [address] [facility] [address] [place] [address] Care Team Providers Care Registered Nurse Teacher Name Role Phone Constance Garza MD Primary Care Provider [phone] Encounter Details Date Type Department Care Team (Late st Contact Info) Description 03/12/2022 Abstract [facility] MED[facility]INE [address] [place] [address] Constance Garza MD [address] [place] [address] Social History Tobacco Use Types Packs/Day Years Used Date Smoking Tobacco: Never Assessed Comments Unknown Sex and Gender Information Value Date Recorded Sex Assigned at Female 12/08/2021 10:16 AM EDT Legal Sex Female 10:16 AM EDT Gender Identity Female 12/08/2021 10:16 AM EDT Sexual Orientation Choose not to disclose 2021 10:16 AM EDT documented as of this encounter Plan of Treatment Not on file documented as of this encounter Procedures Procedure Name Priority Date/Time Associated Diagnosis Comments PAP SMEAR Routine 10/04/2017 12:00 AM EDT documented in this encounter Results * Pap Smear (10/04/2017 12:00 AM EDT) Swab us Historical Provider LAB CYTOLOGY ORDERABLES F inal Result IMAGING documented in this encounter Visit Diagnoses Not on filedocumented in this encounter Care Teams Registered Nurse Teacher Relationship Specialty Start Date End Date Constance Garza MD [address] [place] [address] PCP - General Family Medicine 02/08/18 documented as of this encounter
--- OUTSIDE RECORDS SUMMARY | 2024-03-28 14:37 | XMS_ITS | Encounter Summary ---
Author Organization [employer] Address [address] [place] [address] Care Team Providers Care Scorer Helper Name Role Phone Constance Garza MD Primary Care Provider [phone]- [phone] Encounter Details Date Type Department Care Team (Latest Contact Info) Description 03/28/2024 Travel Social History Tobacco Use Types Packs/Day Years Used Date Smoking Tobacco: Every Day Cigarettes Smokeless Tobacco: Never Alcohol Use Standard Drinks/Week Comments Never 0 (1 standard drink = 0.6 oz pur e alcohol) Depression Answer Date Recorded Patient Health Questionnaire-9 Score 0 06/11/2023 Patient Health Questionnaire-9 Score 0 06/11/2023 Last PHQ-9: Questionnaire Data Not on file 0 06/11/2023 Housing Stability Answer Date Recorded What is your housing situation today? I have garry malave 06/03/[address] you li ve. Do you have problems with any of the following? None of the above 06/03/2023 Food Insecurity Answer Date Recorded Within the past 12 months, y ou worried that your food would run out before you got money to buy more: Never True 06/03/2023 Within the past 12 months,th e food you bought just didn't last and you didn't have enough money to get more: Never True Transportation Answer Date Recorded In the past 12 months, has l ack of transportation kept you from medical appts, meetings, work or from getting things needed for daily living? No 06/03/2023 Utilities Answer Date Recorded In the past 12 months, has t he electric, gas, oil or water company threatened to shut off services in your home? No 06/03/2023 Depression Answer Date Recorded Patient Health Questionnaire-2 Score 0 06/11/2023 Comments No Sex and Gender Information Value Date Recorded Sex Assigned at Female 12/08/2021 10:16 AM EDT Legal Sex Female 10:16 AM EDT Gender Identity Female 12/08/2021 10:16 AM EDT Sexual Orientation Choose not to disclose 2021 10:16 AM EDT documented as of this encounter Plan of Treatment Not on file documented as of this encounter Visit Diagnoses Not on filedocumented in this encounter Additional Health Concerns Assessment Noted Time PHQ-9 Depression Total Score: 0 06/11/19 24 10:25 AM EDT documented as of this encounter Care Teams Scorer Helper Relationship Specialty Start Date End Date Constance Garza MD [address] [place] [id number] PCP - General Family Medicine 02/08/18 documented as of this encounter
--- OUTSIDE RECORDS SUMMARY | 2024-03-28 14:37 | XMS_ITS | Encounter Summary ---
Author Organization [employer] Address [address] [facility] [address] [place] [address] Care Team Providers Care Oil Field Roustabout Name Role Phone Constance Garza MD Primary Care Provider [phone]- [phone] Reason for Visit * Reason Comments Med Refill Encounter Details Date Type Department Care Team ([facility] st Contact Info) Description 01/15/2024 Refill [facility] MEDICINE [address] [place], [place] [phone] Constance Garza MD [address] [place] [address] Vitamin D deficiency Social History Tobacco Use Types Packs/Day Years [...] documented as of this encounter Visit Diagnoses Diagnosis Vitamin D deficiency documented in this encounter Additional Health Concerns Assessment Noted Time PHQ-9 Depression Total Score: 0 06/11/19 24 10:25 AM EDT documented as of this encounter Care Teams Oil Field Roustabout Relationship Specialty Start Date End Date Constance Garza MD [address] [place] [id number] PCP - General Family Medicine 02/08/18 documented as of this encounter
--- OUTSIDE RECORDS SUMMARY | 2024-03-28 14:37 | XMS_ITS | Encounter Summary ---
Author Organization [employer] Address [address] [facility] [address] [place] [address] Care Team Providers Care Gear Finisher Name Role Phone Constance Garza MD Primary Care Provider +1- [phone] Reason for Visit * Reason Onset Date Comments Nurse Triage 03/28/2024 Encounter Details Date Type Department Care Team ([facility] st Contact Info) Description 03/28/2024 Telephone [facility] MEDICINE [address] [place], [place] [phone] Constance Garza MD [address] [place], [place] [phone] Nurse Triage Social History Tobacco Use Types Packs/Day Years [...] AM EDT documented as of this encounter Miscellaneous Notes * Telephone Encounter - Vesna Monae RN - 03/28/2024 9:19 AM EST Call returned to Tammy Pham to triage below. Rports since last Wednesday has had vision since last week. Pt also having worsening HERNANDEZ x 1 week, but chronic x 3 months. No vomiting or CRISTIAN sx. Mild nausea. Still taking Propranolol. Has not been monitoring BP. Per pt not on any daily tx for migraines. Using OTC Excedrin migraine medication with mild relief. Pt advised of disposition, agrees to sick on site today with team provider. Reviewed home care advise, ER precautions and reasons to call back. Protocol Used: Headache (Adult) Protocol-Based Disposition: Callback or Video Visit by PCP within 1 Hour Future Appointments Date Time Provider Department Center 03/28/2024 1:00 PM Kayla Wood MD MEDICINE [facility] Insurance verified as active per Real Time Eligibility in [facility]. Positive Triage Question: * Severe headache and not relieved by pain meds * All higher-acuity triage questions were negative Care Advice Discussed: * Reassurance and Education - Migraine Headache * Pain Medicine for Migraine * Pain Medicines * Reasons To Call Back - Stiff neck occurs (can't touch chin to chest) - You become worse * Telephone Encounter - Nicol Olvera - 03/28/2024 8:47 AM EST Symptom: Vision Loss or Change Outcome: Schedule an urgent appointment (within 1 hour) or talk to a nurse or provider soon Reason: Started within the past 3 days The caller accepted this outcome. [phone] documented in this encounter Plan of Treatment Not on file documented as of this encounter Visit Diagnoses Not on filedocumented in this encounter Additional Health Concerns Assessment Noted Time PHQ-9 Depression Total Score: 0 06/11/19 24 10:25 AM EDT documented as of this encounter Care Teams Gear Finisher Relationship Specialty Start Date End Date Constance Garza MD [address] [place] [address] PCP - General Family Medicine 02/08/18 documented as of this encounter
--- OUTSIDE RECORDS SUMMARY | 2024-03-28 14:37 | XMS_ITS | Encounter Summary ---
Author Organization [employer] Address [address] [facility] [address] [place] [address] Care Team Providers Care Inspector Fibrous Wallboard Name Role Phone Constance Garza MD Primary Care Provider +1- [phone] Encounter Details Date Type Department Care Team ([facility] st Contact Info) Description 03/28/2024 1:00 PM EST Office Visit [facility] MEDICINE [address] [place], [place] [phone] Kayla Wood MD [address] [place] [address] Intractable headache, unspecified chronicity pattern, unspecified headache type (Primary Dx); Temporal pain Social History Tobacco Use Types Packs/Day Years [...] AM EDT documented as of this encounter Last Filed Vital Signs Vital Sign Reading Time Taken Comments Blood Pressure 138/78 03/28/2024 1:18 PM EST Pulse 79 03/28/2024 1:18 PM EST Temperature 36.2 ??C (97.1 ??F) 03/28/2024 1:18 PM ES T Respiratory Rate 15 03/28/2024 1:18 PM EST Oxygen Saturation 97% 03/28/2024 1:18 PM EST Inhaled Oxygen Concentration - - Weight 102 kg (224 lb) 03/28/2024 1:18 PM EST Height - - Body Mass Index 39.68 10/22/2023 2:48 PM EDT documented in this encounter Miscellaneous Notes * Assessment & Plan Note - Virginia Bangura MA - 03/28/2024 1:47 PM ESTAssociated Problem(s): Temporal pain - Will evaluate for Temperol Arteritis 03/28/24 * Assessment & Plan Note - Virginia Bangura MA - 03/28/2024 1:46 PM ESTAssociated Problem(s): Intractable headache - Pt has history of migraine. Will change Propranolol to Topiramate 03/28/24 - Will start Imitrex 03/28/24 - Will refer to neurologist to check hyper cranial hypertension 03/28/24 - Will consider evaluating with MRI 03/28/24 documented in this encounter Plan of Treatment Scheduled Orders Name Type Priority Associated Diagnoses Orde r Schedule CBC auto differential Lab Routine Intractable headache, unspecified chronicity pattern, unspecified headache type Temporal pain Expected: 03/28/2024 (Approximate), Expires: 03/28/2025 C-reactive Protein Lab Routine Intractable headache, unspecified chronicity pattern, unspecified headache type Temporal pain Expected: 03/28/2024 (Approximate), Expires: 03/28/2025 Sed Rate by Modified [place]gren Lab Routine Intractable headache, unspecified chronicity pattern, unspecified headache type Temporal pain Expected: 03/28/2024 (Approximate), Expires: 03/28/2025 documented as of this encounter Visit Diagnoses Diagnosis Intractable headache, unspecified chronicity pattern, unspecified headache type- Primary Temporal pain documented in this encounter Additional Health Concerns Assessment Noted Time PHQ-9 Depression Total Score: 0 06/11/19 24 10:25 AM EDT documented as of this encounter Care Teams Inspector Fibrous Wallboard Relationship Specialty Start Date End Date Constance Garza MD [address] [place] [address] PCP - General Family Medicine 02/08/18 documented as of this encounter
--- OUTSIDE RECORDS SUMMARY | 2024-03-28 14:37 | XMS_ITS | Clinical Summary ---
Author Organization [employer] Address [address] [facility] [address] [place] [address] Care Team Providers Care Silver Cleaner Name Role Phone Constance Garza MD Primary Care Provider [phone] Allergies No known active allergies Medications cholecalciferol (Vitamin D-3) 25 MCG (1000 UT) tabletIndication s:Vitamin D deficiency Take 1 tablet (25 mcg) by mouth Once per day. 90 tablet 3 4 Active albuterol 108 (90 Base) MCG/ACT inhalerIndicatio ns:Intermittent asthma with allergic rhinitis Inhale 2 puffs every 4 (four) hours if needed for shortness of breath. 18 g 1 4 Active Varenicline Tartrate, Starter, 0.5 MG X 11 & 1 MG X 42 tablet therapy pack USE DIRECTED PERPACKAGE LABELING 53 each 2 4 Active Isela 30 MG tablet TAKE 1 TABLET (30 MG) BY MOUTH 1 (ONE) TIME FOR 1 DOSE. 4 Active norethindrone (Ortho Micronor) 0.35 MG tablet Take 1 tablet (0.35 mg) by mouth Once per day. 28 tablet 12 4 08/02/19 25 Active metFORMIN (Glucophage) 500 MG tabletIndication s:Hidradenitis suppurativa Take 2 tablets (1,000 mg) by mouth with breakfast and with evening meal. 120 tablet 11 4 10/22/19 25 Active doxycycline (Vibra-Tabs) 100 MG tabletIndication s:Hidradenitis suppurativa,Acne vulgaris TAKE 1 TABLET (100 MG) BY MOUTH 2 TIMES DAILY. TAKE WITH A FULL GLASS OF WATER AND DO NOT LIE DOWN FOR AT LEAST 30 MINUTES AFTER. 60 tablet 2 4 Active propranolol (Inderal) 20 MG tabletIndication s:Chronic migraine w/o aura w/o status migrainosus, not intractable Take 1 tablet (20 mg) by mouth 3 times daily. 90 tablet 11 4 02/04/20 25 Active topiramate (Topamax) 25 MG tablet Take 1 tablet (25 mg) by mouth Once per day. 30 tablet 11 5 03/28/19 26 Active SUMAtriptan (Imitrex) 50 MG tablet Take 1 tablet by mouth for migraine. May repeat dose once in 2 hours if no relief. Do not exceed 2 doses in 24 hours. 9 tablet 1 5 Active Hospital, Clinic, or Other Facility Administered Medication Ordered Dose Route Frequency Start Date End Date Status lidocaine (Uro-Jet) 2 % gelIndications:Visit for insertion of intrauterine device TOP As needed 08/17/2023 Active Active Problems Problem Noted Date Diagnosed Date Intractable headache 03/28/2024 Assessment & Plan (03/28/2024 1:46 PM EST): - Pt has history of migraine. Will change Propranolol to Topiramate 03/28/24 - Will start Imitrex 03/28/24 - Will refer to neurologist to check hyper cranial hypertension 03/28/24 - Will consider evaluating with MRI 03/28/24 Temporal pain 03/28/2024 Assessment & Plan (03/28/2024 1:47 PM EST): - Will evaluate for Temperol Arteritis 03/28/24 Chronic migraine w/o aura w/ o status migrainosus, not intractable 02/04/2024 Assessment & Plan (02/04/2024 10:48 AM EST): No red flags for HERNANDEZ, no indication for head imaging today Neuro exam today showed no abnormalities Will send rx for excedrine to be used q6hrs PRN for abortive therapy Will trial propranolol 20 mg TID for migraine prophylaxis Discussed side effects of propranolol including, bradycardia, hypotension, and dizziness ED precautions reviewed for visual changes, sudden thunderclap HERNANDEZ, confusion, numbness, weakness, fever, n/v, neurological changes Encouraged 2-3L of water intake daily Will f/u in 1 month via telehealth Tachycardia 02/04/2024 Assessment & Plan (02/04/2024 10:44 AM EST): Pt is tachycardic today, pulse 122 BP 122/74 Denies CP, SOB, dizziness, nausea, vomiting Cardiac exam was normal today Advised patient to reduce caffeine intake to 1-2 cups daily. ED precautions reviewed Vitamin D deficiency 06/23/2023 Overview (06/23/2023): Lab Results Component Value Date [id number] 15.5 (L) 06/15/2023 -weekly D started 06/15/23 then will transition to daily after 2 months Assessment & Plan (06/23/2023 12:33 PM EDT): Lab Results Component Value Date [id number] 15.5 (L) 06/15/2023 -weekly D started 06/15/23 then will transition to daily after 2 months History of gestational diabetes mellitus (GDM) 0 06/11/2023 Obesity with body mass index 30 or greater 06/10 Overview (06/11/2023): Lifestyle modification discussed including nutrition stratgeies and phsycial activity recommendations. Assessment & Plan (06/11/2023 11:44 AM EDT): Lifestyle modification discussed including nutrition stratgeies and phsycial activity recommendations. Pre-syncope 06/11/2023 Overview (06/23/2023): Labs ordered 06/11/23 sig for low Vit d -she will work on decreasing K cups of coffee from 6 to 3 -advised compressing stocking at work and hydration Assessment & Plan (06/23/2023 12:32 PM EDT): Labs ordered 06/11/23 sig for low Vit d -she will work on decreasing K cups of coffee from 6 to 3 -advised compressing stocking at work and hydration Assessment & Plan (06/11/2023 11:42 AM EDT): Labs ordered 06/11/23 Advised compressing stocking at work and hydration Cough 06/11/2023 Overview (06/11/2023): Greater than 2 weeks with post tussive emesis Will treat presumptively for Pertussis Xray ordered 06/11/23 Assessment & Plan (06/11/2023 11:42 AM EDT): Greater than 2 weeks with post tussive emesis Will treat presumptively for Pertussis Xray ordered 06/11/23 Bilateral hand pain 06/11/2023 Overview (06/11/2023): No evidence of synovitis Denies client support manager stiffness Will check labs 06/11/23 Assessment & Plan (06/11/2023 11:43 AM EDT): No evidence of synovitis Denies client support manager stiffness Will check labs 06/11/23 History of induced hypertension 2023 Tobacco dependence with current use 06/11/2023 Overview (06/23/2023): -Cigg/day: 10 cigarette/day -Age started: 12 -Total years smokin years -Pack year history: 10.5 Encouraged smoking cessation resources such as pharmacomtherapy, [facility] smoking cessation group, and [facility] pharmacy smoking cessation clinic Discussed USPSTF recommends annual lung cancer screening with low dose CT in people who meet the following criteria: -ages 50 to 80 years. -have a 20 pack-year smoking history. -currently smoke cigarettes or quit within the past 15 years. -LDCT: -has chantix but has not started Assessment & Plan (06/23/2023 12:31 PM EDT): -Cigg/day: 10 cigarette/day -Age started: 12 -Total years smokin years -Pack year history: 10.5 Encouraged smoking cessation resources such as pharmacomtherapy, [facility] smoking cessation group, and [facility] pharmacy smoking cessation clinic Discussed USPSTF recommends annual lung cancer screening with low dose CT in people who meet the following criteria: -ages 50 to 80 years. -have a 20 pack-year smoking history. -currently smoke cigarettes or quit within the past 15 years. -LDCT: -has chantix but has not started Assessment & Plan (06/11/2023 11:18 AM EDT): -Cigg/day: 10 cigarette/day -Age started: 12 -Total years smokin years -Pack year history: 10.5 Encouraged smoking cessation resources such as pharmacomtherapy, [facility] smoking cessation group, and [facility] pharmacy smoking cessation clinic Discussed USPSTF recommends annual lung cancer screening with low dose CT in people who meet the following criteria: -ages 50 to 80 years. -have a 20 pack-year smoking history. -currently smoke cigarettes or quit within the past 15 years. -LDCT: - Family planning 06/11/2023 Overview (06/11/2023): -pt does not desire within the next 12 months -discussed efficacies, benefits and risks of available contraceptive means available including IUD, subdermal implantable device, injection, combination oral contraceptives, patch, vaginal ring and condoms. -patient wishes to proceed with IUD -condoms offered -Plan B offered Assessment & Plan (06/11/2023 11:15 AM EDT): -pt does not desire within the next 12 months -discussed efficacies, benefits and risks of available contraceptive means available including IUD, subdermal implantable device, injection, combination oral contraceptives, patch, vaginal ring and condoms. -patient wishes to proceed with IUD -condoms offered -Plan B offered Preventative health care 12/15/2022 Overview (06/11/2023): -next physical exam due after 06/10/2024 -eye care facilitated by none. Referral place to [facility] 06/11/23 -dental home is by [facility] -health care proxy paperwork completed by the patient 06/11/23 Assessment & Plan (06/11/2023 11:18 AM EDT): -next physical exam due after 06/10/2024 -eye care facilitated by none. Referral place to [facility] 06/11/23 -dental home is by [facility] -health care proxy paperwork completed by the patient 06/11/23 Intermittent asthma with allergic rhinitis 11/0612/15/2022 Overview (06/11/2023): Well controlled on Albuterol prn Assessment & Plan (06/11/2023 11:44 AM EDT): Well controlled on Albuterol prn Hidradenitis suppurativa 06/16/2013 023 Resolved Problems Problem Noted Date Diagnosed Date Resolved Date Migraine 11/28/2012 12/15/2022 02/04/2024 Encounters Date Type Department Care Team Description 03/28/2024 1:00 PM EST Office Visit [facility] [address] [place] [phone] Kayla Wood MD Intractable headache, unspecified chronicity pattern, unspecified headache type (Primary Dx); Temporal pain 03/28/2024 Travel 03/28/2024 Telephone [facility] [address] [place] [address] Constance Garza MD Nurse Triage 02/04/2024 9:15 AM EST Office Visit [facility] [address] [place] [address] Alfonso Diaz, ADITYA Chronic migraine w/o aura w/o status migrainosus, not intractable (Primary Dx); Tachycardia 02/04/2024 Travel 02/03/2024 Telephone [facility] [address] [place] [address] Constance Garza MD Nurse Triage 01/15/2024 Refill [facility] [address], [place] [phone] Nancy Frances MD Hidradenitis suppurativa; Acne vulgaris 01/15/2024 Refill [facility] [address] [place] [address] Constance Garza MD Vitamin D deficiency from Last 3 Months Immunizations Name Administration Dates Next Due DTP 06/09/1995, 2,1990,1990,1990 HPV, Quadrivalent 07/12/2008,02/15/2008,12/29/19 08 Hep B, Adolescent or Pediatric 04/09/1995,1994,09/08/1994 Hib (HbOC) 06/09/1991, 1,1990,1990 Influenza injectable quadriv alent preservative free 11/27/2021,12/12/2018,12/10/2016,2016 Influenza, IIV3, injectable 05/21/2020,0 03/01/2014,10/24/2010,2009 Influenza, Split (incl. noel fied surface antigen) 02/06/2013 Influenza, seasonal, injecta ble, preservative free 10/25/2023 MMR 09/08/1994,06/09/1991 OPV 06/09/1995, 2,1990,1990 Pfizer Covid-19 Vaccine 12+ 12/18/2021, 2 Pfizer Covid-19 Vaccine 12+ candida-sucrose (Mccarthy Cap) 12/18/2021,11/27/2021 Pneumococcal Conjugate PCV 20 06/11/2023 TD (adult), 2 Lf tetanus tox oid, preservative free, adsorbed 12/28/2008,09/10/2003 Tdap 08/26/2020,09/30/2011 Social History Tobacco Use Types Packs/Day Years Used Date Smoking Tobacco: Every Day Cigarettes Smokeless Tobacco: Never Tobacco Cessation:Ready to Q uit: Not Asked; Counseling Given: Not Answered Alcohol Use Standard Drinks/Week Comments Never 0 [...] not to disclose 2021 10:16 AM EDT Last Filed Vital Signs Vital Sign Reading Time Taken Comments Blood Pressure 138/78 03/28/2024 1:18 PM EST Pulse 79 03/28/2024 1:18 PM EST Temperature 36.2 ??C (97.1 ??F) 03/28/2024 1:18 PM ES T Respiratory Rate 15 03/28/2024 1:18 PM EST Oxygen Saturation 97% 03/28/2024 1:18 PM EST Inhaled Oxygen Concentration - - Weight 102 kg (224 lb) 03/28/2024 1:18 PM EST Height 160 cm (5' 3 ) 10/22/2023 2:48 PM EDT Body Mass Index 39.68 10/22/2023 2:48 PM EDT Plan of Treatment Health Maintenance Due Date Last Done Comments Alcohol/Substance Use Screening 2002 Hepatitis A Vaccines (1 of 2 - Risk 2-dose series) 2009 COVID-19 Vaccine ( season) 2023 12/18/2021, 12/18/2021, 11/27/2021, Additional history exists SDOH Screening 06/02/2024 06/03/2023 Depression Screening 06/10/2024 06/11/2023, 06/11/19 Family Planning (PISQ) 08/16/2024 08/17/2023 Tobacco Screening 03/28/2025 03/28/2024 Lipid Panel 06/14/2028 06/15/2023 Cervical Cancer Screening 08/02/2028 HPV/Cotest 08/02/2028 08/03/2023 Pap Smear 08/02/2028 08/03/2023, 10/04/2017 DTaP/Tdap/Td Vaccines (8 - Td or Tdap) 08/26/2030 08/26/2020, 09/30/2011, 12/28/2008, Additional history exists Zoster Vaccines (1 of 2) 2040 RSV Patients and Patients Aged 60 years or older (1 - 1-dose 75+ series) 2065 HIB Vaccines Completed 06/09/1991, 02/1990, 1990, Additional history exists Hepatitis B Vaccines Completed 04/09/1995, 11/08/1994, 09/08/1994 IPV Vaccines Completed 06/09/1995, 02/1991, 1990, Additional history exists HPV Vaccines Completed 07/12/2008, 08/2008, 12/29/2007 Pneumococcal Vaccine: Pediatrics (0 to 5 Years) and At-Risk Patients (6 to 49) Years) Completed 06/11/2023 HIV Screening Completed 06/15/2023, 04/21/2019 Hepatitis C Screening Completed 06/15/2023, 020 Influenza Vaccine Completed 10/25/2023, , 05/21/2020, Additional history exists Meningococcal Vaccine Aged Out No katlyn olivia eligible based on patient's age to complete this topic RSV under 20 months Aged Out No longe r eligible based on patient's age to complete this topic Rotavirus Vaccines Aged Out No longer eligible based on patient's age to complete this topic Procedures Procedure Name Priority Date/Time Associated Diagnosis Comments THINPREP IMAGING PAP AND HPV MRNA E6/E7 WITH REFLEX TO HPV 16,18/45 Routine 08/03/2023 10:10 AM EDT Vitamin D deficiency HEPATITIS C AB W/REFL TO HCV RNA, QN, PCR Routine 06/15/2023 10:26 AM EDT Routine screening for STI (sexually transmitted infection) HIV 1/2 ANTIGEN/ANTIBODY, FOURTH GENERATION W/RFL Routine 06/15/2023 10:26 AM EDT Routine screening for STI (sexually transmitted infection) LIPID PANEL, STANDARD Routine 06/15/2023 10:26 AM EDT Obesity with body mass index 30 or greater from Last 3 Months or Most Recently Relevant to Health Maintenance Results * ThinPrep Imaging Pap and HPV mRNA E6/E7 with Reflex to HPV 16,18/45 (08/03/2023 10:10 AM EDT) HPV 16 RNA [facility] HPV 18/45 RNA [facility] HPV nRNA E6/E7 Not Detected Not Detected [facility] Comment:Methodology: Transcr iption-Mediated AmplificationThis assay detects E6/E7 viral messenger RNA (mRNA) from 14high-risk HPV types (16,18,31,33,35,39,45,51,52,56,58,59,66,68).Cervical sources are required for HPV testing.If a vaginal source from a patient who has had atotal hysterectomy with removal of cervix wassubmitted, please contact the testing laboratoryfor alternative testing options.For additional information, please refer tohttp://education.[employer]/faq/ZIJ747t5(This link if provided for information/educational purposes only.)THIS TEST WAS PERFORMED AT:[facility] [place] [phone] QUEEN MD SOURCE: SEE NOTE [facility] Comment:Cervix Report Status: [facility] Clinical Information: SEE NOTE [facility] Comment:ROUTINE LMP: SEE NOTE [facility] Comment:NONE GIVEN Prev. PAP: SEE NOTE [facility] Comment:NONE GIVEN Prev. BX: SEE NOTE [facility] Comment:NONE GIVEN Statement Of Adequacy: SEE NOTE [facility] Comment:Satisfactory for lula luation.Endocervical/transformation zone componentpresent.Age and/or menstrual status not provided General Categorization: [facility] Interpretation/Result: SEE NOTE [facility] Comment:Cytology Results: Ne gative for intraepitheliallesion or malignancy. Cytology Comment SEE NOTE [facility] Comment:This Pap test has be en evaluated with computerassisted technology. Electrical Engineer: SEE NOTE [facility] Comment:MRC, CT(ASCP) CT scr eening location: [address] [address] Review Electrical Engineer: [facility] Pathologist [facility] PAP Infection [facility] See Note SEE NOTE [facility] Comment:EXPLANATORY NOTE:The Pap is a screening test for cervical cancer. It isnot a diagnostic test and is subject to false negativeand false positive results. It is most reliable when asatisfactory sample, regularly obtained, is submittedwith relevant clinical findings and history, and whenthe Pap result is evaluated along with historic andcurrent clinical information. 08/03/2023 10:1 0 AM EDT 08/04/2023 11:54 AM EDT Narrative [facility] - 08/10/2023 3:30 PM EDT SEE SCANNED RESULTS IN EMRROUTINECERVICAL us Ir[facility] PATHOLOGY ORDERABLES Final Result [facility] [address] [place] [phone] * Hepatitis C Antibody with Reflex to HCV, RNA, Quantitative, Real-Time PCR (06/15/2023 10:26 AM EDT) Hepatitis C Antibody Nonreactive Nonreactive [facility] Comment:Antibodies to HCV no t detected; does not exclude early acuteHCV infection. Blood Venous blood specimen / Unknown 06/15/2023 10:26 AM EDT 06/15/2023 11:50 AM EDT Constance Garza MD LAB BLOOD ORDERABLES Final Result Performing Organization Address [facility] Co de Phone Number [facility] [address] [place] [phone] * HIV-1/2 Antigen and Antibodies, Fourth Generation, with Reflexes (06/15/2023 10:26 AM EDT) HIV AB/AG Nonreactive Nonreactive [facility] Comment:HIV-1 p24 Ag and/or HIV-1/HIV-2 Ab not detected.A test result that is nonreactive does not exclude thepossibility of exposure to or infection with HIV-1 and/orHIV-2. Nonreactive results in this assay for individualswith prior exposure to HIV-1 and/or HIV-2 may be due toantigen and antibody levels that are below the limit ofdetection of this assay.The [employer] HIV Ag/Ab Combo assay result andsupplemental assay results should be interpreted inconjunction with the patient's clinical presentation,history and other laboratory results. If the results areinconsistent with clinical evidence, additional testing issuggested to confirm the result. Blood Venous blood specimen / Unknown 06/15/2023 10:26 AM EDT 06/15/2023 11:50 AM EDT Constance Garza MD LAB BLOOD ORDERABLES Final Result Performing Organization Address [facility] Co de Phone Number [facility] [address] [place] [phone] * (ABNORMAL) Lipid Panel, Standard (06/15/2023 10:26 AM EDT) Triglycerides 66 <150 mg/dL [facility] Comment:Desirable Triglyceri de: less than 150 mg/dLBorderline High Triglyceride 150-199 mg/dLHigh Triglyceride: 200-499 mg/dLVery High Triglyceride: greater than or equal to 5OO mg/dL Cholesterol 161 <200 mg/dL [facility] Comment:Desirable Cholestero l: less than 200 mg/dLBorderline High Cholesterol: 200-239 mg/dLHigh Cholesterol: greater than 239 mg/dL LDL Cholesterol Calculated 105(H) <100 mg/dL [facility] Comment:Desirable LDL: less than 100 mg/dLNear Optimal/Above Optimal LDL: 110- 129 mg/dLBorderline High LDL: 130-159 mg/dLHigh LDL: 160-189 mg/dLVery High LDL: greater than or equal to 190 mg/dL HDL Cholesterol 43 >40 mg/dL [facility] Comment:Desirable HDL: great er than 40 mg/dL Note: This HDL assay may give artificially low results in patients with liver disease. Blood Venous blood specimen / Unknown 06/15/2023 10:26 AM EDT 06/15/2023 11:50 AM EDT us Constance Garza MD LAB BLOOD ORDERABLES Final Result [facility] [address] [place] [phone] from Last 3 Months or Most Recently Relevant to Health Maintenance Insurance [employer] STANDARD [employer] [place] [id number] [place] [id number] Advance Directives Documents on File Type Date Recorded Patient Grinding Mill Operator Expl anation Advance Directives and Living Will 06/18/2023 Health Care Proxy 07/01/23 Care Teams Silver Cleaner Relationship Specialty Start Date End Date Henderson, MD Constance [address] [place] [phone] PCP - General Family Medicine 02/08/18
[2024-03-28 16:13] LABS: MANUAL DIFF FLAG NO
[2024-03-28 16:15] LABS: Basophils Percent Auto 0.3 % (0-2); Eosinophils Absolute Auto 0.2 X10*3/uL (0.0-0.4); Eosinophils Percent Auto 2.8 % (0-4); Hematocrit 42.1 % (37.0-47.0); Hemoglobin 14.1 g/dl (12.0-16.0); Imm Gran Abs Auto 0.02 X10*3/uL (0.00-0.03); Imm Gran Pct Auto 0.3 % (0.0-0.4); Lymphocytes Absolute Auto 3.1 X10*3/uL (1.2-4.9); Lymphocytes Percent Auto 51.4 % (20-40); Mean Corpuscular HGB Conc 33.5 g/dl (31.0-35.0); Mean Corpuscular Hemoglobin 28.3 pg (27.0-33.0); Mean Corpuscular Volume 84.5 fL (80.0-98.0); Mean Platelet Volume 10.2 fL (9.4-12.3); Monocytes Absolute Auto 0.5 X10*3/uL (0.1-1.2); Monocytes Percent Auto 7.7 % (2-11); Neutrophils Absolute Auto 2.2 x10*3/uL (2.0-8.3); Neutrophils Percent Auto 37.5 % (45-73); Platelet Count 334 X10*3/uL (160-400); Red Blood Count 4.98 X10*6/uL (4.20-5.50); Red Cell Distribution Width 14.9 % (11.0-16.0)
[2024-03-28 17:09] LABS: Erythrocyte Sedimentation Rate 6 MM/HR (0-20)
== END 2024-03-28 13:40 | disposition home or self-care (01) ==
LOC: HO.HHCL 13:39
PROVIDERS: Visit Provider Family Medicine
DX: R51.9 Headache, unspecified (principal)
CPT/HCPCS: 36415; 85025; 85652; 86140

== ENCOUNTER 2024-04-16 09:51 | Outpatient (REF) | payer MEDICAID, SELFPAY ==
--- NOTE | ~2024-04-16 | MR_ITS ---
EXAMINATION: MR BRAIN WITHOUT IV CONTRAST HISTORY: headache, currently treated as migraine. Worsening. Affecting vision. TECHNIQUE: Sagittal T1, and axial T1, FLAIR, T2, gradient echo, and diffusion weighted MR images of the brain were obtained. COMPARISON: Comparison is made with the prior examination dated 08/23/2017. FINDINGS: The brain parenchyma is unremarkable, demonstrating normal juarez/white differentiation. No foci of abnormal signal intensity are identified. The ventricular system is normal in size and configuration. There is no mass effect or midline shift. No intra or extra-axial fluid collections are identified. There are no foci of restricted diffusion. Normal vascular flow voids are noted in the basilar and carotid arteries. The visualized paranasal sinuses are clear. MR/MR head/brain wo con IMPRESSION: No acute intracranial abnormality. Electronically signed by: Phil Gallo MD 04/17/2024 03:54 PM EDT
--- OUTSIDE RECORDS SUMMARY | 2024-04-16 09:55 | XMS_ITS | Encounter Summary ---
Author Organization [employer] Address [address] [place] [address] 7 [place] [address] Care Team Providers Care Storage Center Manager Name Role Phone Constance Garza MD Primary Care Provider [phone]- [phone] Reason for Referral * Imaging (Routine) - Authorized Specialty Diagnoses / Procedures Referred By Contac t Referred To Contact Radiology Diagnoses Intractable headache, unspecified chronicity pattern, unspecified headache type Temporal pain Procedures MR Brain w/o Contrast Kayla Wood MD [address] [place] [address] Phone: tel: fax: [address] Phone: tel: fax: Referral ID Status Reason Start Date Expiration Date V isits Requested Visits Authorized [id number] Authorized 03/31/2024 03/31/2025 1 1 * Consultation (Routine) - Authorized Specialty Diagnoses / Procedures Referred By Contac t Referred To Contact Neurology Diagnoses Intractable headache, unspecified chronicity pattern, unspecified headache type Temporal pain Kayla Wood MD [address] [place] [address] Phone: tel: fax: Ca Mejia MD [address] [place] [address] [place] [address] Phone: tel: fax: Referral ID Status Reason Start Date Expiration Date Visits Requested Visits Authorized [id number] Authorized Specialty Services Required 04/04/2024 04/04/2025 6 6 Encounter Details Date Type Department Care Team (Late st Contact Info) Description 03/28/2024 1:00 PM EST Office Visit [facility] [address] [place] [address] Kayla Wood MD [address] [place] [address] Intractable headache, unspecified chronicity pattern, unspecified headache type (Primary Dx); Temporal pain; Tobacco dependence with current use; Dietary counseling; Exercise counseling; Class 2 severe obesity due to excess calories with serious comorbidity and body mass index (BMI) of 39.0 to 39.9 in adult (CMS/[facility]) Social History Tobacco Use Types Packs/Day Years [...] 2:48 PM EDT documented in this encounter Progress Notes * Kayla Wood MD - 03/28/2024 1:00 PM EST Subjective Tammy Pham is a 34 y.o. female who has migraine and history of presyncope, and patient presents for headache. Background: Last seen by PCP in June 2023. Seen in the walk-in clinic for worsening of chronic headache on 02/04/24. Patient reported that shehas history of migraine. Started on propranolol 20 mg tid for migraine prophylaxis Excedrin for abortive therapy. Triage note from this morning is documented as following: Rports since last Wednesday has had vision since last week. Pt also having worsening HERNANDEZ x 1 week, butchronic x 3 months. No vomiting or CRISTIAN sx. Mild nausea. Still taking Propranolol. Has not been monitoring BP. Per pt not on any daily tx for migraines. Using OTC Excedrin migraine medication with mild relief. Today: Pt reports she has been having migraines for 13 years, but it has been back since last Wednesday. Shenotes she received medication in January of 2024 for her migraines, that she takes 3 times a day but it has not helped. She notes the pain is intermittent and describes her migraines feeling similarto injuring her head with the pain will radiate from one location at a time but the pain will move from place to place. She reports experiencing nausea and vomiting with her right arm and hand feeling tingly. Pt reports she will get tunnel vision as well. Pt stays hydrated with water and coffee, reporting possibly drinking more coffee than she should. Pt notes she takes melatonin to go to sleep and without melatonin she can't sleep. Pt sleeps with an ice pack on her head and when the ice melts,her headache returns and she has to change the ice out. She reports Excedrin used to help with her headaches, but not lately. Also noting Naproxen is what she was previously prescribed. Pt does not have any PMFHx other than her parents wear glasses, but she does not. Pt agreed to get her blood work done today. Pt confirms she has a IUD and is not sure how long she's had it for. Pt reports she has a 13 year old, a four year old, and three year old. Pt is currently taking Metformin and Doxicycline. She denies having a stuffy nose but confirms she has Asthma. Pt confirms she smoke cigarettes. Pt reports she used to have syncope episodes but has not fainted in a while. Pt denies having a sleep study done. Review of Systems Constitutional: Negative for activity change, appetite change and fever. Respiratory: Negative for shortness of breath. Cardiovascular: Negative for chest pain. Objective Vitals: 03/28/24 1318 BP: 138/78 Pulse: 79 Resp: 15 Temp: 97.1 ??F (36.2 ??C) TempSrc: Temporal SpO2: 97% Weight: 224 lb (102 kg) Physical Exam Constitutional: General: She is not in acute distress. Appearance: Normal appearance. She is not ill-appearing. HENT: Head: Normocephalic and atraumatic. Mouth/Throat: Mouth: Mucous membranes are moist. Eyes: Extraocular Movements: Extraocular movements intact. Pupils: Pupils are equal, round, and reactive to light. Cardiovascular: Rate and Rhythm: Normal rate and regular rhythm. Heart sounds: No murmur heard. Pulmonary: Effort: Pulmonary effort is normal. No respiratory distress. Breath sounds: Normal breath sounds. No wheezing or rhonchi. Skin: General: Skin is warm. Neurological: Mental Status: She is alert. Mental status is at baseline. Psychiatric: Mood and Affect: Mood normal. Results: Assessment/Plan Problem List Items Addressed This Visit Tobacco dependence with current use Intractable headache - Primary - Pt has history of migraine. Will change Propranolol to Topiramate 03/28/24 - Will start Imitrex 03/28/24 - Will refer to neurologist to check hyper cranial hypertension 03/28/24 - Will consider evaluating with MRI 03/28/24 - Ordered Sed Rate by Modified Westergren 03/28/24 Relevant Orders CBC auto differential (Completed) C-reactive Protein (Completed) Sed Rate by Modified Westergren (Completed) Referral to Neurology MR Brain w/o Contrast Temporal pain - Will evaluate for Temperol Arteritis 03/28/24 - Ordered Sed Rate by Modified Westergren 03/28/24 Relevant Orders CBC auto differential (Completed) C-reactive Protein (Completed) Sed Rate by Modified Westergren (Completed) Referral to Neurology MR Brain w/o Contrast Other Visit Diagnoses Dietary counseling Exercise counseling Class 2 severe obesity due to excess calories with serious comorbidity and body mass index (BMI) of39.0 to 39.9 in adult (CMS/[facility]) - follow recommendations by PCP No Known Allergies Current Outpatient Medications Medication Instructions albuterol 108 (90 Base) MCG/ACT inhaler 2 puffs, Inhalation, Every 4 hours PRN cholecalciferol (VITAMIN D-3) 25 mcg, Oral, Daily doxycycline (VIBRA-TABS) 100 mg, Oral, 2 times daily, Take with a full glass of water and do not lie down for at least 30 minutes after. Isela 30 MG tablet TAKE 1 TABLET (30 MG) BY MOUTH 1 (ONE) TIME FOR 1 DOSE. metFORMIN (GLUCOPHAGE) 1,000 mg, Oral, 2 times daily with meals norethindrone (ORTHO MICRONOR) 0.35 mg, Oral, Daily propranolol (INDERAL) 20 mg, Oral, 3 times daily SUMAtriptan (Imitrex) 50 MG tablet Take 1 tablet by mouth for migraine. May repeat dose once in 2 hours if no relief. Do not exceed 2 doses in 24 hours. topiramate (TOPAMAX) 25 mg, Oral, Daily Varenicline Tartrate, Starter, 0.5 MG X 11 & 1 MG X 42 tablet therapy pack USE DIRECTED PERPACKAGE LABELING Follow-up: With PCP in 5 weeks for follow up on headache or sooner if any problem arises. Scribe Attestation: IVirginia, am serving as a scribe to document services personally performed by Kayla Wood MD, based on the patient's response to questions by provider and provides statements to me. documented in this encounter Miscellaneous Notes * Assessment & Plan Note - Virginia Bangura MA - 03/28/2024 1:47 PM ESTAssociated Problem(s): Temporal pain - Will evaluate for Temperol Arteritis 03/28/24 - Ordered Sed Rate by Modified Georgiana 03/28/24 * Assessment & Plan Note - Virginia Bangura MA - 03/28/2024 1:46 PM ESTAssociated Problem(s): Intractable headache - Pt has history of migraine. Will change Propranolol to Topiramate 03/28/24 - Will start Imitrex 03/28/24 - Will refer to neurologist to check hyper cranial hypertension 03/28/24 - Will consider evaluating with MRI 03/28/24 - Ordered Sed Rate by Luis Stoner 03/28/24 documented in this encounter Plan of Treatment Upcoming Encounters Date Type Department Care Team (Late st Contact Info) Description 05/15/2024 9:45 AM EDT Office Visit [facility] [address] [place] [address] Constance Garza MD [address] [place] [address] Scheduled Orders Name Type Priority Associated Diagnoses Orde r Schedule MR Brain w/o Contrast Imaging Routine Intractable headache, unspecified chronicity pattern, unspecified headache type Temporal pain Expected: 03/31/2024, Expires: 03/31/2025 Scheduled Referrals Name Type Priority Associated Diagnoses Orde r Schedule Referral to Neurology Outpatient Referral Routine Intractable headache, unspecified chronicity pattern, unspecified headache type Temporal pain Expected: 03/31/2024 (Approximate), Expires: 03/31/2025 documented as of this encounter Procedures Procedure Name Priority Date/Time Associated Diagnosis Comments CBC WITH AUTO DIFFERENTIAL Routine 03/28/2024 1:41 PM EST Intractable headache, unspecified chronicity pattern, unspecified headache type Temporal pain SED RATE BY MODIFIED WESTERGREN Routine 03/28/2024 1:41 PM EST Intractable headache, unspecified chronicity pattern, unspecified headache type Temporal pain C-REACTIVE PROTEIN Routine 03/28/2024 1: 41 PM EST Intractable headache, unspecified chronicity pattern, unspecified headache type Temporal pain documented in this encounter Results * Sed Rate by Modified Westergren (03/28/2024 1:41 PM EST) Erythrocyte Sedimentation Rate 6 0 - 20 MM/HR [facility] Comment:Patients with polycy themia and many hemoglobin abnormalitiesmay have depressed sed rates whereas patients with anemiamay have elevated sed rates. Blood Venous blood specimen / Unknown 03/28/2024 1:41 PM EST 03/28/2024 4:04 PM EST us Kayla Wood MD LAB BLOOD ORDERABLES Final Resul t [facility] [address] [place] [phone] * (ABNORMAL) C-reactive Protein (03/28/2024 1:41 PM EST) C Reactive Protein 0.80(H) < or = 0.50 mg/dL [facility] Blood Venous blood specimen / Unknown 03/28/2024 1:41 PM EST 03/28/2024 4:04 PM EST us Kayla Wood MD LAB BLOOD ORDERABLES Final Resul t [facility] [address] [place] [phone] [phone] * (ABNORMAL) CBC auto differential (03/28/2024 1:41 PM EST) White Blood Count 6.0 4.8 - 10.8 X10*3/uL [facility] Red Blood Count 4.98 4.20 - 5.50 X10*6/uL [facility] Hemoglobin 14.1 12.0 - 16.0 g/dl [facility] Hematocrit 42.1 37.0 - 47.0 % [facility] Mean Corpuscular Volume 84.5 80.0 - 98.0 fL [facility] Mean Corpuscular Hemoglobin 28.3 27.0 - 33.0 pg [facility] Mean Corpuscular HGB Conc 33.5 31.0 - 35.0 g/dl [facility] Red Cell Distribution Width 14.9 11.0 - 16.0 % [facility] Platelet Count 334 160 - 400 X10*3/uL [facility] Mean Platelet Volume 10.2 9.4 - 12.3 fL [facility] Neutrophils Percent Auto 37.5(L) 45 - 73 % [facility] Imm Gran Pct Auto 0.3 0.0 - 0.4 % [facility] Lymphocytes Percent Auto 51.4(H) 20 - 40 % [facility] Monocytes Percent Auto 7.7 2 - 11 % [facility] Eosinophils Percent Auto 2.8 0 - 4 % [facility] Basophils Percent Auto 0.3 0 - 2 % [facility] NRBC Pct Auto 0.0 0.0 - 0.2 /100WBC [facility] Neutrophils Absolute Auto 2.2 2.0 - 8.3 x10*3/uL [facility] Imm Gran Abs Auto 0.02 0.00 - 0.03 X10*3/uL [facility] Lymphocytes Absolute Auto 3.1 1.2 - 4.9 X10*3/uL [facility] Monocytes Absolute Auto 0.5 0.1 - 1.2 X10*3/uL [facility] Eosinophils Absolute Auto 0.2 0.0 - 0.4 X10*3/uL [facility] Basophils Absolute Auto 0.0 0.0 - 0.2 X10*3/uL [facility] NRBC Abs Auto 0.000 0.0 - 0.012 X10*3/uL [facility] Blood Venous blood specimen / Unknown 03/28/2024 1:41 PM EST 03/28/2024 4:04 PM EST us Kayla Wood MD LAB BLOOD ORDERABLES Final Resul t [facility] [address] [place] [phone] documented in this encounter Visit Diagnoses Diagnosis Intractable headache, unspecified chronicity pattern, unspecified headache type- Primary Temporal pain Tobacco dependence with current use Dietary counseling Dietary surveillance and counseling Exercise counseling Class 2 severe obesity due to excess calories with serious comorbidity and body mass index (BMI) of 39.0 to 39.9 in adult (CMS/HCC) documented in this encounter Additional Health Concerns Assessment Noted Time PHQ-9 Depression Total Score: 0 06/11/19 24 10:25 AM EDT documented as of this encounter Care Teams Storage Center Manager Relationship Specialty Start Date End Date Constance Garza MD [address] [place] [phone] PCP - General Family Medicine 02/08/18 documented as of this encounter
--- OUTSIDE RECORDS SUMMARY | 2024-04-16 09:55 | XMS_ITS | Encounter Summary ---
Author Organization [employer] Address [address] [facility] [address] [place] [address] Care Team Providers Care Chief Human Resources Officer Name Role Phone Constance Garza MD Primary Care Provider +1- [phone] Encounter Details Date Type Department Care Team [...] as of this encounter Plan of Treatment Upcoming Encounters Date Type Department Care Team (Late st Contact Info) Description 05/15/2024 9:45 AM EDT Office Visit [facility] [address] [place] [address] Constance Garza MD [address] [place] [address] documented as of this encounter Visit Diagnoses Not on filedocumented in this encounter Additional Health Concerns Assessment Noted Time PHQ-9 Depression Total Score: 0 06/11/19 24 10:25 AM EDT documented as of this encounter Care Teams Chief Human Resources Officer Relationship Specialty Start Date End Date Constance Garza MD [address] [place] [address] PCP - General Family Medicine 02/08/18 documented as of this encounter
--- OUTSIDE RECORDS SUMMARY | 2024-04-16 09:56 | XMS_ITS | Clinical Summary ---
Author Organization [employer] Address [address] [facility] 7[address] [place] [address] Care Team Providers Care Frequency Checker Name Role Phone Constance Garza MD Primary Care Provider +1- [phone] Allergies No known active allergies Medications cholecalciferol [...] Intractable headache 03/28/2024 Assessment & Plan (03/28/2024 4:45 PM EST): - Pt has history of migraine. Will change Propranolol to Topiramate 03/28/24 - Will start Imitrex 03/28/24 - Will refer to neurologist to check hyper cranial hypertension 03/28/24 - Will consider evaluating with MRI 03/28/24 - Ordered Sed Rate by Modified Georgiana 03/28/24 Temporal pain 03/28/2024 Assessment & Plan (03/28/2024 4:46 PM EST): - Will evaluate for Temperol Arteritis 03/28/24 - Ordered Sed Rate by Modified Amadaren 03/28/24 Chronic migraine w/o aura w/ o [...] Overview (06/23/2023): Lab Results Component Value Date [id number] 15.5 (L) 06/15/2023 -weekly D started 06/15/23 then will transition to daily after 2 months Assessment & Plan (06/23/2023 12:33 PM EDT): Lab Results Component Value Date [id number] 15.5 (L) 06/15/2023 -weekly D started 06/15/23 [...] Overview (06/11/2023): No evidence of synovitis Denies cooker process cheese stiffness Will check labs 06/11/23 Assessment & Plan (06/11/2023 11:43 AM EDT): No evidence of synovitis Denies cooker process cheese stiffness Will check labs 06/11/23 History of induced hypertension 2023 Tobacco dependence with current use 06/11/2023 Overview (06/23/2023): -Cigg/day: 10 cigarette/day -Age started: 12 -Total years smokin years -Pack year history: 10.5 Encouraged smoking cessation resources such as pharmacomtherapy, [facility] smoking cessation group, and [facility] pharmacy smoking cessation clinic Discussed USPSTF [...] as pharmacomtherapy, [facility] smoking cessation group, and [facility] pharmacy smoking cessation clinic Discussed USPSTF [...] as pharmacomtherapy, [facility] smoking cessation group, and [facility] pharmacy smoking cessation clinic Discussed USPSTF [...] care facilitated by none. Referral place to [facility] 06/11/23 -dental home is by [facility] -health care proxy paperwork completed by the patient 06/11/23 Assessment & Plan (06/11/2023 11:18 AM EDT): -next physical exam due after 06/10/2024 -eye care facilitated by none. Referral place to [facility] 06/11/23 -dental home [facility] by [facility] -health care proxy paperwork completed by the [...] Description 03/28/2024 1:00 PM EST Office Visit [facility] MEDICINE [address] [place] [phone] Kayla Wood MD Intractable headache, unspecified chronicity pattern, unspecified headache type (Primary Dx); Temporal pain; Tobacco dependence with current use; Dietary counseling; Exercise counseling; Class 2 severe obesity due to excess calories with serious comorbidity and body mass index (BMI) of 39.0 to 39.9 in adult ([facility]) 03/28/2024 Travel 03/28/2024 Telephone [facility] [address] [place] [phone] Constance Garza MD Nurse Triage 02/04/2024 9:15 AM EST Office Visit [facility] [address] [place] [address] Alfonso Diaz CNP Chronic migraine w/o aura w/o status migrainosus, not intractable (Primary Dx); Tachycardia 02/04/2024 Travel 02/03/2024 Telephone [facility] [address] [place] [address] Constance Garza MD Nurse Triage from Last 3 Months Immunizations Name Administration [...] 10/22/2023 2:48 PM EDT Plan of Treatment Upcoming Encounters Date Type Department Care Team (Late st Contact Info) Description 05/15/2024 9:45 AM EDT Office Visit [facility] [address] [place], [place] [phone] Constance Garza MD [address] [place], [place] [phone] Health Maintenance Due Date Last Done Comments Alcohol/Substance Use Screening 2002 Hepatitis A Vaccines (1 of 2 - Risk 2-dose series) 2009 COVID-19 Vaccine ( season) 2023 12/18/2021, 12/18/2021, 11/27/2021, Additional history exists SDOH Screening 06/02/2024 06/03/2023 Depression Screening 06/10/2024 06/11/2023, 06/11/19 Family Planning (PISQ) 08/16/2024 08/17/2023 Tobacco Screening 03/31/2025 03/31/2024 Lipid Panel 06/14/2028 06/15/2023 Cervical Cancer Screening [...] Procedure Name Priority Date/Time Associated Diagnosis Comments SED RATE BY MODIFIED MIRIAMERGREN Routine 03/28/2024 1:41 PM EST Intractable headache, unspecified chronicity pattern, unspecified headache type Temporal pain C-REACTIVE PROTEIN Routine 03/28/2024 1: 41 PM EST Intractable headache, unspecified chronicity pattern, unspecified headache type Temporal pain CBC WITH AUTO DIFFERENTIAL Routine 03/28/2024 1:41 PM EST Intractable headache, unspecified chronicity pattern, unspecified headache type Temporal pain THINPREP IMAGING PAP AND HPV MRNA E6/E7 [...] Recently Relevant to Health Maintenance Results * (ABNORMAL) CBC auto differential (03/28/2024 1:41 PM EST) White Blood Count 6.0 4.8 - 10.8 X10*3/uL [facility] Red Blood Count 4.98 4.20 - 5.50 X10*6/uL [facility] Hemoglobin 14.1 12.0 - 16.0 g/dl [facility] Hematocrit 42.1 37.0 - 47.0 % [facility] Mean Corpuscular Volume 84.5 80.0 - 98.0 fL [facility] Mean Corpuscular Hemoglobin 28.3 27.0 - 33.0 pg [facility] Mean Corpuscular HGB Conc 33.5 31.0 - 35.0 g/dl [facility] Red Cell Distribution Width 14.9 11.0 - 16.0 % [facility] Platelet Count 334 160 - 400 X10*3/uL [facility] Mean Platelet Volume 10.2 9.4 - 12.3 fL [facility] Neutrophils Percent Auto 37.5(L) 45 - 73 % [facility] Imm Gran Pct Auto 0.3 0.0 - 0.4 % [facility] Lymphocytes Percent Auto 51.4(H) 20 - 40 % [facility] Monocytes Percent Auto 7.7 2 - 11 % [facility] Eosinophils Percent Auto 2.8 0 - 4 % [facility] Basophils Percent Auto 0.3 0 - 2 % [facility] NRBC Pct Auto 0.0 0.0 - 0.2 /100WBC [facility] Neutrophils Absolute Auto 2.2 2.0 - 8.3 x10*3/uL [facility] Imm Gran Abs Auto 0.02 0.00 - 0.03 X10*3/uL [facility] Lymphocytes Absolute Auto 3.1 1.2 - 4.9 X10*3/uL [facility] Monocytes Absolute Auto 0.5 0.1 - 1.2 X10*3/uL [facility] Eosinophils Absolute Auto 0.2 0.0 - 0.4 X10*3/uL [facility] Basophils Absolute Auto 0.0 0.0 - 0.2 X10*3/uL [facility] NRBC Abs Auto 0.000 0.0 - 0.012 X10*3/uL [facility] Blood Venous blood specimen / Unknown 03/28/2024 1:41 PM EST 03/28/2024 4:04 PM EST us Kayla Wood MD LAB BLOOD ORDERABLES Final Resul t [facility] [address] [place] [phone] * Sed Rate by Modified Miriamergren (03/28/2024 1:41 PM EST) Erythrocyte Sedimentation Rate 6 0 - 20 MM/HR [facility] Comment:Patients with polycy themia and many hemoglobin abnormalitiesmay have depressed sed rates whereas patients with anemiamay have elevated sed rates. Blood Venous blood specimen / Unknown 03/28/2024 1:41 PM EST 03/28/2024 4:04 PM EST Kayla Wood MD LAB BLOOD ORDERABLES Final Resul t Performing Organization Address [facility] Co de Phone Number [facility] [address] [place] [phone] * (ABNORMAL) C-reactive Protein (03/28/2024 1:41 PM EST) C Reactive Protein 0.80(H) < or = 0.50 mg/dL [facility] Blood Venous blood specimen / Unknown 03/28/2024 1:41 PM EST 03/28/2024 4:04 PM EST us Kayla Wood MD LAB BLOOD ORDERABLES Final Resul t Performing Organization Address City/[facility] Co de Phone Number [facility] [address] [place] [phone] * ThinPrep Imaging Pap and HPV mRNA E6/E7 with Reflex to HPV 16,18/45 (08/03/2023 10:10 AM EDT) HPV 16 RNA TNP [facility] HPV 18/45 RNA [facility] HPV nRNA E6/E7 Not Detected Not Detected [facility] Comment:Methodology: Transcr iption-Mediated AmplificationThis assay detects E6/E7 viral messenger RNA (mRNA) from 14high-risk HPV types (16,18,31,33,35,39,45,51,52,56,58,59,66,68).Cervical sources are required for HPV testing.If a vaginal source from a patient who has had atotal hysterectomy with removal of cervix wassubmitted, please contact the testing laboratoryfor alternative testing options.For additional information, please refer [email or web address].[employer]topia/faq/DJN337n3(This link if provided for information/educational purposes only.)THIS TEST WAS PERFORMED AT:[facility] [address] [phone] QUEEN MD SOURCE: SEE NOTE [facility] Comment:Cervix Report Status: [facility] Clinical Information: SEE NOTE [facility] Comment:ROUTINE LMP: SEE NOTE [facility] Comment:NONE GIVEN Prev. PAP: SEE NOTE [facility] Comment:NONE GIVEN Prev. BX: SEE NOTE [facility] Comment:NONE GIVEN Statement Of Adequacy: SEE NOTE [facility] Comment:Satisfactory for lula luation.Endocervical/transformation zone componentpresent.Age and/or menstrual status not provided General Categorization: [facility] Interpretation/Result: SEE NOTE [facility] Comment:Cytology Results: Ne gative for intraepitheliallesion or malignancy. Cytology Comment SEE NOTE [facility] Comment:This Pap test has be en evaluated with computerassisted technology. Multiskill Operator: SEE NOTE [facility] Comment:MRC, CT(ASCP) CT scr eening location: [address] [address] Review Multiskill Operator: [facility] Pathologist [facility] PAP Infection [facility] See Note SEE NOTE [facility] Comment:EXPLANATORY NOTE:The Pap is a [...] AM EDT 08/04/2023 11:54 AM EDT Narrative [facility] - 08/10/2023 3:30 PM EDT SEE SCANNED RESULTS IN EMRROUTINECERVICAL Irma Duval CNM LAB PATHOLOGY ORDERABLES Final Result Performing Organization Address City/[facility]/ZIP Co de Phone Number [facility] [address] [place] [phone] * Hepatitis C Antibody with Reflex to HCV, RNA, Quantitative, Real-Time PCR (06/15/2023 10:26 AM EDT) Hepatitis C Antibody Nonreactive Nonreactive [facility] Comment:Antibodies to HCV no t detected; does not exclude early acuteHCV infection. Blood Venous blood specimen / Unknown 06/15/2023 10:26 AM EDT 06/15/2023 11:50 AM EDT Constance Garza MD LAB BLOOD ORDERABLES Final Result Performing Organization Address [facility]/ZIP Co de Phone Number [facility] [address] [place] [phone] * HIV-1/2 Antigen and Antibodies, Fourth Generation, with Reflexes (06/15/2023 10:26 AM EDT) HIV AB/AG Nonreactive Nonreactive [facility] Comment:HIV-1 p24 Ag and/or HIV-1/HIV-2 Ab not detected.A test result that is nonreactive does not exclude thepossibility of exposure to or infection with HIV-1 and/orHIV-2. Nonreactive results in this assay for individualswith prior exposure to HIV-1 and/or HIV-2 may be due toantigen and antibody levels that are below the limit ofdetection of this assay.The [employer] HIV Ag/Ab Combo assay result andsupplemental assay results should be interpreted inconjunction with the patient's clinical presentation,history and other laboratory results. If the results areinconsistent with clinical evidence, additional testing issuggested to confirm the result. Blood Venous blood specimen / Unknown 06/15/2023 10:26 AM EDT 06/15/2023 11:50 AM EDT Constance Garza MD LAB BLOOD ORDERABLES Final Result Performing Organization Address [facility] Co de Phone Number [facility] [address] [place] [phone] * (ABNORMAL) Lipid Panel, Standard (06/15/2023 10:26 AM EDT) Triglycerides 66 <150 mg/dL [facility] Comment:Desirable Triglyceri de: less than 150 mg/dLBorderline High Triglyceride 150-199 mg/dLHigh Triglyceride: 200-499 mg/dLVery High Triglyceride: greater than or equal to 5OO mg/dL Cholesterol 161 <200 mg/dL [facility] Comment:Desirable Cholestero l: less than 200 mg/dLBorderline High Cholesterol: 200-239 mg/dLHigh Cholesterol: greater than 239 mg/dL LDL Cholesterol Calculated 105(H) <100 mg/dL [facility] Comment:Desirable LDL: less than 100 mg/dLNear Optimal/Above Optimal LDL: 110- 129 mg/dLBorderline High LDL: 130-159 mg/dLHigh LDL: 160-189 mg/dLVery High LDL: greater than or equal to 190 mg/dL HDL Cholesterol 43 >40 mg/dL [facility] Comment:Desirable HDL: great er than 40 mg/dL Note: This HDL assay may give artificially low results in patients with liver disease. Blood Venous blood specimen / Unknown 06/15/2023 10:26 AM EDT 06/15/2023 11:50 AM EDT Constance Garza MD LAB BLOOD ORDERABLES Final Result Performing Organization Address [facility] Co de Phone Number [facility] [address] [place] [phone] from Last 3 Months or Most Recently Relevant to Health Maintenance Insurance [facility] [place] [address] [facility] [employer] [facility] [place] [address] [facility] [place] [address] [facility] [place] [address] Advance Directives Documents on File Type Date Recorded Patient Costumer Expl anation Advance Directives and Living Will 06/18/2023 Health Care Proxy 07/01/23 Care Teams Frequency Checker Relationship Specialty Start Date End Date [place], [place] Constance [address] [place] [phone] PCP - General Family Medicine 02/08/18
--- OUTSIDE RECORDS SUMMARY | 2024-04-16 09:56 | XMS_ITS | Encounter Summary ---
Author Organization [email or web address] Address [address] [facility] 7 [place] [address] Care Team Providers Care Wait Staff Name Role Phone Constance Garza MD Primary Care Provider +1- [phone] Reason for Visit * Reason Onset Date Comments Nurse Triage 03/28/2024 Encounter Details Date Type Department Care Team ([facility] st Contact Info) Description 03/28/2024 Telephone [facility] [address] [place] [address] Constance Garza MD [address] [place], [place] [phone] Nurse Triage Social History Tobacco Use Types [...] 03/28/2024 1:00 PM Kayla Wood MD MEDICINE [facility] Insurance verified as active per Real Time Eligibility in [facility]. Positive Triage Question: * Severe headache and [...] 3 days The caller accepted this outcome. [phone] documented in this encounter Plan of Treatment Upcoming Encounters Date Type Department Care Team (Late st Contact Info) Description 05/15/2024 9:45 AM EDT Office Visit [facility] [address] [place] [address] Constance Garza MD [address] [place] [phone] documented as of this encounter Visit Diagnoses Not on filedocumented in this encounter Additional Health Concerns Assessment Noted Time PHQ-9 Depression Total Score: 0 06/11/19 24 10:25 AM EDT documented as of this encounter Care Teams Wait Staff Relationship Specialty Start Date End Date Constance Garza MD [address] [place] [phone] PCP - General Family Medicine 02/08/18 documented as of this encounter
--- OUTSIDE RECORDS SUMMARY | 2024-04-16 09:56 | XMS_ITS | Encounter Summary ---
Author Organization [employer] Address [address] [facility] 7t [place] [address] Care Team Providers Care Parquet Floor Layer'S Helper Name Role Phone Constance Garza MD Primary Care Provider +1- [phone] Reason for Visit * Reason Comments Med Refill Encounter Details Date Type Department Care Team ([facility] st Contact Info) Description 01/15/2024 Refill [facility] [address] [place] [address] Constance Garza MD [address] [place] [address] Vitamin D deficiency Social History Tobacco Use [...] Description 05/15/2024 9:45 AM EDT Office Visit [facility] [address] [place] [phone] Constance Garza MD [address] [place] [phone] documented as of this encounter Visit Diagnoses Diagnosis Vitamin D deficiency documented in this encounter Additional Health Concerns Assessment Noted Time PHQ-9 Depression Total Score: 0 06/11/19 24 10:25 AM EDT documented as of this encounter Care Teams Parquet Floor Layer'S Helper Relationship Specialty Start Date End Date Constance Garza MD [address] [place] [phone] PCP - General Family Medicine 02/08/18 documented as of this encounter
--- OUTSIDE RECORDS SUMMARY | 2024-04-16 09:56 | XMS_ITS | Clinical Summary ---
Author Organization [employer] [facility] ity Address [address] [place] [address] Care Team Providers Care Enterprise Manager Name Role Phone Unavailable Primary Care Provider [...]
== END 2024-04-16 09:52 | disposition home or self-care (01) ==
LOC: HO.MRI 09:51
PROVIDERS: PCP Family Medicine; Visit Provider Family Medicine
DX: R51.9 Headache, unspecified (principal)
CPT/HCPCS: 70551

== ENCOUNTER → 2024-04-16 09:59 | Outpatient (BNV) | payer MEDICAID, SELFPAY | PROVIDERS: PCP Family Medicine; Visit Provider Radiology Diagnostic Radiology | DX: G43.909 Migraine, unspecified, not intractable, without status migrainosus (principal); H53.9 Unspecified visual disturbance | CPT/HCPCS: 70551 ==

== ENCOUNTER 2024-07-21 08:58 | Outpatient (REF) | payer MEDICAID, SELFPAY ==
--- OUTSIDE RECORDS SUMMARY | 2024-07-21 09:21 | XMS_ITS | Clinical Summary ---
Author Organization [employer] [facility] ity Address [address] [place] [address] Care Team Providers Care Perforator Operator Name Role Phone Unavailable Primary Care Provider [...] Vaccine (2023-2 5 season) 2023 Influenza Vaccine (Season Ended) 2024 HIB Vaccines Aged Out No longer eligi [...] age to complete this topic Meningococcal B Vaccine Aged Out No l onger eligible based on patient's age to complete [...]
[2024-07-24 02:09] LABS: TS Negative Control Passed; TS Panel A 0; TS Panel B 0; TS Positive Control Passed; TSpotTB Negative (Negative)
== END 2024-07-21 08:59 | disposition home or self-care (01) ==
LOC: HO.HHCL 08:58
PROVIDERS: Visit Provider Family Medicine
DX: Z11.1 Encounter for screening for respiratory tuberculosis (principal)
CPT/HCPCS: 36415; 86481

== ENCOUNTER 2024-08-16 11:43 | Outpatient (REF) | payer MEDICAID, SELFPAY ==
--- OUTSIDE RECORDS SUMMARY | 2024-08-16 12:55 | XMS_ITS | Clinical Summary ---
Author Organization [employer] [facility] ity Address [address] [place] [address] Care Team Providers Care Maxillofacial Prosthetics Dentist Name Role Phone Unavailable Primary Care Provider [...] Screening: P ap Smear 2011 COVID-19 Vaccine ( - 2023-2 5 season) 2023 Influenza Vaccine (#1) 2024 HIB Vaccines Aged Out No longer [...] 5 Years) and At-Risk Patients (6 to 49 Years) Aged Out No longer eligible b ased on patient's age to complete this topic RSV Immunization Patients Un idalmis 20 months Aged Out No longer eligible b ased on patient's age to complete this topic Varicella Vaccines Aged Out No longer eligible based on patient's age to complete this topic
--- OUTSIDE RECORDS SUMMARY | 2024-08-16 12:55 | XMS_ITS | Clinical Summary ---
Author Organization [email or web address] Address [address] [facility] [address] [place] [address] Care Team Providers Care Supervisor Audit Clerks Name Role Phone Constance Garza MD Primary Care Provider [phone] Allergies No known active allergies Medications cholecalcifero l (Vitamin D-3) 25 MCG (1000 UT) tabletIndicati ons:Vitamin D deficiency Take 1 tablet (25 mcg) by mouth Once per day. 90 tablet 3 06/11/19 24 Active albuterol 108 (90 Base) MCG/ACT inhalerIndicat ions:Intermitt ent asthma with allergic rhinitis Inhale 2 puffs every 4 (four) hours if needed for shortness of breath. 18 g 1 06/11/19 24 Active Isela 30 MG tablet TAKE 1 TABLET (30 MG) BY MOUTH 1 (ONE) TIME FOR 1 DOSE. 06/14/19 24 Active metFORMIN (Glucophage) 500 MG tabletIndicati ons:Hidradenit is suppurativa Take 2 tablets (1,000 mg) by mouth with breakfast and with evening meal. 120 tablet 11 10/22/19 24 025 Active topiramate (Topamax) 25 MG tablet Take 1 tablet (25 mg) by mouth Once per day. 30 tablet 11 03/28/19 25 026 Active SUMAtriptan (Imitrex) 50 MG tablet Take 1 tablet by mouth for migraine. May repeat dose once in 2 hours if no relief. Do not exceed 2 doses in 24 hours. 9 tablet 1 03/28/19 25 Active valACYclovir (Valtrex) 1 g tablet Take 1 tablet (1,000 mg) by mouth 3 times daily for 10 days. 30 tablet 08/10/19 25 025 Active ibuprofen 400 MG tablet Take 1 tablet (400 mg) by mouth every 6 (six) hours if needed for moderate pain or fever for up to 30 doses. 30 tablet 08/10/19 25 Active Drospirenone (Slynd) 4 MG tabletIndicati ons:Family planning Take 1 tablet by mouth Once per day. 90 tablet 3 08/17/19 25 Active varenicline (Chantix Continuing ) 1 MG tablet Take 1 tablet (1 mg) by mouth 2 times daily. Take with full glass of water. 60 tablet 2 08/17/19 25 Active Varenicline Tartrate, Starter, 0.5 MG X 11 & 1 MG X 42 tablet therapy pack USE DIRECTED PERPACKAGE LABELING 53 each 2 06/11/19 24 Discontinued(Re order (will not trigger notification to Pharmacy)) norethindrone (Ortho Micronor) 0.35 MG tablet Take 1 tablet (0.35 mg) by mouth Once per day. 28 tablet 12 08/03/19 24 025 Discontinued propranolol (Inderal) 20 MG tabletIndicati ons:Chronic migraine w/o aura w/o status migrainosus, not intractable Take 1 tablet (20 mg) by mouth 3 times daily. 90 tablet 11 02/04/20 24 025 Discontinued(Al ternate therapy) doxycycline (Vibra-Tabs) 100 MG tabletIndicati ons:Hidradenit is suppurativa,Ac ne vulgaris TAKE 1 TABLET (100 MG) BY MOUTH 2 TIMES DAILY. TAKE WITH A FULL GLASS OF WATER AND DO NOT LIE DOWN FOR AT LEAST 30 MINUTES AFTER. 60 tablet 2 04/22/19 25 025 Discontinued doxycycline (Vibra-Tabs) 100 MG tabletIndicati ons:Hidradenit is suppurativa,Ac ne vulgaris TAKE 1 TABLET (100 MG) BY MOUTH 2 TIMES DAILY. TAKE WITH A FULL GLASS OF WATER AND DO NOT LIE DOWN FOR AT LEAST 30 MINUTES AFTER. 60 tablet 2 08/05/19 25 025 Discontinued varenicline (Chantix Continuing ) 1 MG tablet Take 1 tablet (1 mg) by mouth 2 times daily. Take with full glass of water. 60 tablet 2 08/10/19 25 025 Discontinued Varenicline Tartrate, Starter, 0.5 MG X 11 & 1 MG X 42 tablet therapy pack Take 0.5 mg by mouth Once daily for 3 days, THEN 0.5 mg 2 times daily for 4 days, THEN 1 mg 2 times daily for 21 days. USE DIRECTED PERPACKAGE LABELING. 53 each 2 08/10/19 25 025 Discontinued Hospital, Clinic, or Other Facility Administered Medication Ordered Dose Route Frequency Start Date End Date Status lidocaine (Uro-Jet) 2 % gelIndications:Visit for insertion of intrauterine device TOP As needed 08/17/2023 08/16/2024 Disco ntinued Active Problems Problem Noted Date Diagnosed Date Dyslipidemia 05/14/2024 Overview (08/16/2024): Lab Results Component Value Date CHOL 161 06/15/2023 TRIG 66 06/15/2023 HDL 43 06/15/2023 LDLCHOLCAL 105 (H) 06/15/2023 -continue lifestyle modification -ordered repeat FLP and HFP 08/16/24 Assessment & Plan (08/16/2024 11:38 AM EDT): Lab Results Component Value Date CHOL 161 06/15/2023 TRIG 66 06/15/2023 HDL 43 06/15/2023 LDLCHOLCAL 105 (H) 06/15/2023 -continue lifestyle modification -ordered repeat FLP and HFP 08/16/24 Orders: Hepatic Function Panel; Future Magnesium; Future Lipid Panel, Standard; Future Chronic migraine w/o aura w/ o status migrainosus, not intractable 02/04/2024 Overview (08/16/2024): -referred to Neurology 03/31/24 -MRI done in ER 04/17/24 The brain parenchyma is unremarkable, demonstrating normal mccarthy/white differentiation. No foci of abnormal signal intensity are identified. The ventricular system is normal in size and configuration. There is no mass effect or midline shift. No intra or extra-axial fluid collections are identified. There are no foci of restricted diffusion. Normal vascular flow voids are noted in the basilar and carotid arteries. The visualized paranasal sinuses are clear. -Has not seen neurology, encouraged taking a headache diary and avoiding foods that seem to be consistent with headaches. 08/16/24 Assessment & Plan (08/16/2024 11:38 AM EDT): -referred to Neurology 03/31/24 -MRI done in ER 04/17/24 The brain parenchyma is unremarkable, demonstrating normal mccarthy/white differentiation. No foci of abnormal signal intensity are identified. The ventricular system is normal in size and configuration. There is no mass effect or midline shift. No intra or extra-axial fluid collections are identified. There are no foci of restricted diffusion. Normal vascular flow voids are noted in the basilar and carotid arteries. The visualized paranasal sinuses are clear. -Has not seen neurology, encouraged taking a headache diary and avoiding foods that seem to be consistent with headaches. 08/16/24 Assessment & Plan (02/04/2024 10:48 AM EST): [...] precautions reviewed Vitamin D deficiency 06/23/2023 Overview (08/16/2024): Lab Results Component Value Date [id number] 15.5 (L) 06/15/2023 -weekly D started 06/15/23 then will transition to daily after 2 months -ordered repeat 08/16/24 Assessment & Plan (08/16/2024 11:38 AM EDT): Lab Results Component Value Date [id number] 15.5 (L) 06/15/2023 -weekly D started 06/15/23 then will transition to daily after 2 months -ordered repeat 08/16/24 Orders: Vitamin D, 25-Hydroxy, Total, Immunoassay; Future Assessment & Plan (06/23/2023 12:33 PM EDT): Lab Results Component Value Date [id number] 15.5 (L) 06/15/2023 -weekly D started 06/15/23 then will transition to daily after 2 months History of gestational diabetes mellitus (GDM) 0 06/11/2023 Overview (08/16/2024): -ordered A1C 08/17/23 Assessment & Plan (08/16/2024 11:38 AM EDT): -ordered A1C 08/17/23 Orders: Hemoglobin A1c; Future Basic Metabolic Panel; Future Pre-syncope 06/11/2023 Overview (06/23/2023): Labs ordered 06/11/23 [...] Advised compressing stocking at work and hydration Bilateral hand pain 06/11/2023 Overview (06/11/2023): No evidence of synovitis 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 pharmacy smoking cessation clinic Discussed USPSTF recommends annual lung cancer screening with low dose CT in people who meet the following criteria: -ages 50 to 80 years. -have a 20 pack-year smoking history. -currently smoke cigarettes or quit within the past 15 years. -LDCT: -has chantix but has not started -encouraged to try mimicking smoking to avoid triggers. 08/16/24 Assessment & Plan (08/16/2024 11:38 AM EDT): -Cigg/day: 10 cigarette/day -Age started: 12 -Total years smokin years -Pack year history: 10.5 Encouraged smoking cessation resources such as pharmacomtherapy, [facility] smoking cessation group, and [facility] pharmacy smoking cessation clinic Discussed USPSTF recommends annual lung cancer screening with low dose CT in people who meet the following criteria: -ages 50 to 80 years. -have a 20 pack-year smoking history. -currently smoke cigarettes or quit within the past 15 years. -LDCT: -has chantix but has not started -encouraged to try mimicking smoking to avoid triggers. 08/16/24 Orders: CBC auto differential; Future Assessment & Plan (06/23/2023 12:31 PM EDT): -Cigg/day: 10 cigarette/day -Age started: 12 -Total years smokin years -Pack year history: 10.5 Encouraged smoking cessation resources such as pharmacomtherapy, [facility] smoking cessation [facility], and [facility] pharmacy smoking cessation clinic Discussed USPSTF [...] [facility] smoking [facility], and [facility] pharmacy smoking cessation clinic Discussed USPSTF recommends annual lung cancer screening with low dose CT in people who meet the following criteria: -ages 50 to 80 years. -have a 20 pack-year smoking history. -currently smoke cigarettes or quit within the past 15 years. -LDCT: - Family planning 06/11/2023 Overview (08/16/2024): -pt does not desire within the next 12 months -discussed efficacies, benefits and risks of available contraceptive means available including IUD, subdermal implantable device, injection, combination oral contraceptives, patch, vaginal ring and condoms. -patient wishes to proceed with OCP, Drospirenone (Slynd) 4 MG tablet -condoms offered -Plan B offered Assessment & Plan (08/16/2024 11:38 AM EDT): -pt does not desire within the next 12 months -discussed efficacies, benefits and risks of available contraceptive means available including IUD, subdermal implantable device, injection, combination oral contraceptives, patch, vaginal ring and condoms. -patient wishes to proceed with OCP, Drospirenone (Slynd) 4 MG tablet -condoms offered -Plan B offered Orders: Drospirenone (Slynd) 4 MG tablet; Take 1 tablet by mouth Once per day. Assessment & Plan (06/11/2023 11:15 AM EDT): -pt does not desire within the next 12 months -discussed efficacies, benefits and risks of available contraceptive means available including IUD, subdermal implantable device, injection, combination oral contraceptives, patch, vaginal ring and condoms. -patient wishes to proceed with IUD -condoms offered -Plan B offered Class 2 severe obesity due t o excess calories with serious comorbidity and body mass index (BMI) of 39.0 to 39.9 in adult 06/11/2023 Overview (08/16/2024 11:29 AM EDT): Lifestyle modification discussed including nutrition stratgeies and phsycial activity recommendations. -Discussed trying Topomax for weight loss 08/16/24 -Will follow-up in 8 weeks to reevaluate. Assessment & Plan (08/16/2024 11:29 AM EDT): >>ASSESSMENT AND PLAN FOR OBESITY WITH BODY MASS INDEX 30 OR GREATER WRITTEN ON 06/11/2023 11:44 AM BY KAMERON SCANLON Lifestyle modification discussed including nutrition stratgeies and phsycial activity recommendations. Assessment & Plan (08/16/2024 11:38 AM EDT): Lifestyle modification discussed including nutrition stratgeies and phsycial activity recommendations. -Discussed trying Topomax for weight loss 08/16/24 -Will follow-up in 8 weeks to reevaluate. Orders: Referral to Nutrition Therapy; Future Other specified health status 12/15/2022 Overview (08/16/2024): -next comprehensive annual evaluation due after 08/16/25 -eye care facilitated by none. Referral place to [facility] 06/11/23 -dental home is by [facility] -health care proxy paperwork completed by the patient 06/11/23 Assessment & Plan (08/16/2024 11:38 AM EDT): -next comprehensive annual evaluation due after 08/16/25 -eye care facilitated by none. Referral place to [facility] 06/11/23 -dental home is by [facility] -health care proxy paperwork completed by the patient 06/11/23 Assessment & Plan (06/11/2023 11:18 AM EDT): -next physical exam due after 06/10/2024 -eye care facilitated by none. Referral place to [facility] 06/11/23 -dental home is by [facility] -health care proxy paperwork completed by the patient 5/3/24 Intermittent asthma with allergic rhinitis 11/0612/15/2022 Overview (06/11/2023): Well controlled on Albuterol prn Assessment & Plan (08/16/2024 11:38 AM EDT): Well controlled on Albuterol prn Assessment & Plan (06/11/2023 11:44 AM EDT): Well controlled on Albuterol prn Hidradenitis suppurativa 06/16/2013 023 Resolved Problems Problem Noted Date Diagnosed Date Resolved Date Dietary counseling 05/15/2024 Exercise counseling 05/15/2024 08/17/19 25 Intractable headache 03/28/2024 025 Assessment & Plan (03/28/2024 4:45 PM EST): - Pt has history of migraine. Will change Propranolol to Topiramate 03/28/24 - Will start Imitrex 03/28/24 - Will refer to neurologist to check hyper cranial hypertension 03/28/24 - Will consider evaluating with MRI 03/28/24 - Ordered Sed Rate by Modified Westergren 03/28/24 Temporal pain 03/28/2024 05/14/2024 Assessment & Plan (03/28/2024 4:46 PM EST): - Will evaluate for Temperol Arteritis 03/28/24 - Ordered Sed Rate by Modified Westergren 03/28/24 Cough 06/11/2023 08/16/2024 Overview (06/11/2023): Greater than 2 weeks with post tussive emesis Will treat presumptively for Pertussis Xray ordered 06/11/23 Assessment & Plan (06/11/2023 11:42 AM EDT): Greater than 2 weeks with post tussive emesis Will treat presumptively for Pertussis Xray ordered 06/11/23 Migraine 11/28/2012 12/15/2022 02/04/2024 Encounters Date Type Department Care Team Description 08/16/2024 11:15 AM EDT Office Visit [facility] [address] [place] [phone] Constance Garza MD Chronic migraine w/o aura w/o status migrainosus, not intractable (Primary Dx); Intermittent asthma with allergic rhinitis; Dyslipidemia; Vitamin D deficiency; Family planning; Tobacco dependence with current use; Class 2 severe obesity due to excess calories with serious comorbidity and body mass index (BMI) of 39.0 to 39.9 in adult ([facility]); Dietary counseling; Exercise counseling; Other specified health status; History of gestational diabetes mellitus (GDM); Obesity with body mass index 30 or greater 08/16/2024 Travel 08/15/[address] [facility] [address] [place] [phone] Constance Garza MD CHART PREP 08/09/2024 11:00 AM EDT Office Visit [facility] [address] [place] [phone] Franck Campbell MD Rash (Primary Dx); Tobacco dependence with current use 08/09/2024 Travel 08/09/[address] [facility] [address] [place] [phone] Constance Garza MD Nurse Triage 08/01/[address] [address] Nancy Frances MD Hidradenitis suppurativa; Acne vulgaris 07/24/2024 Results Follow-Up [address] [address] Vivien Leone RN T-SPOT .TB 07/21/2024 Orders Only [address] [address] Constance Garza MD 07/21/[address] [address] Keyana Maldonado RN Lab Orders from Last 3 Months Immunizations Immunization Administration Dates Next Due DTP 06/09/1995, 2,1990,1990,1990 HPV, Quadrivalent 07/12/2008,02/15/2008,12/29/19 08 Hep B, Adolescent or Pediatric 04/09/1995,1994,09/08/1994 Hib (HbOC) 06/09/1991, 1,1990,1990 Influenza injectable quadriv alent preservative free 11/27/2021,12/12/2018,12/10/2016,2016 Influenza, IIV3, injectable 05/21/2020,0 03/01/2014,10/24/2010,2009 Influenza, Split (incl. noel fied surface antigen) 02/06/2013 Influenza, seasonal, injecta ble, preservative free 10/25/2023 MMR 09/08/1994,06/09/1991 OPV, Trivalent 06/09/1995, 2,1990,1990 Pfizer Covid-19 Vaccine 12+ 12/18/2021, 2 Pfizer Covid-19 Vaccine 12+ candida-sucrose (Mccarthy Cap) 12/18/2021,11/27/2021 Pneumococcal Conjugate PCV 20 06/11/2023 TD (adult), 2 Lf tetanus tox oid, preservative free, adsorbed 12/28/2008,09/10/2003 Tdap 08/26/2020,09/30/2011 Family History Medical History Relation Name Comments Lupus Mother Relation Name Status Comments Mother Social History Tobacco Use Types Packs/Day Years Used Date Smoking Tobacco: Every Day Cigarettes Smokeless Tobacco: Never Tobacco Cessation:Ready to Q uit: Not Asked; Counseling Given: Not Answered Alcohol Use Standard Drinks/Week Comments Never 0 (1 standard drink = 0.6 oz pur e alcohol) Depression Answer Date Recorded Patient Health Questionnaire-9 Score 7 08/16/2024 Patient Health Questionnaire-9 Score 7 08/16/2024 Last PHQ-9: Questionnaire Data Not on file 0 08/16/2024 Housing Stability Answer Date Recorded What is your housing situation today? I have garry malave 08/16/[address] you li ve. Do you have problems with any of the following? None of the above 08/16/2024 Food Insecurity Answer Date Recorded Within the past 12 months, y ou worried that your food would run out before you got money to buy more: Never True 08/16/2024 Within the past 12 months,th e food you bought just didn't last and you didn't have enough money to get more: Never True 10/2024 Transportation Answer Date Recorded In the past 12 months, has l ack of transportation kept you from medical appts, meetings, work or from getting things needed for daily living? No 08/16/2024 Utilities Answer Date Recorded In the past 12 months, has t he [employer], gas, oil or water company threatened to shut off services in your home? No 08/16/2024 Depression Answer Date Recorded Patient Health Questionnaire-2 Score 0 08/16/2024 Internet Access Answer Date Recorded Internet Access Q1 Yes 08/16/2024 Internet Access Q2 Not on file 08/16/2024 Comments No Intention Date Recorded No desire to become (finding) 0 08/16/2024 Sex and Gender Information Value Date Recorded Sex Assigned at Female 12/08/2021 10:16 AM EDT Legal Sex Female 10:16 AM EDT Gender Identity Female 12/08/2021 10:16 AM EDT Sexual Orientation Choose not to disclose 2021 10:16 AM EDT Last Filed Vital Signs Vital Sign Reading Time Taken Comments Blood Pressure 138/88 08/16/2024 11:08 AM EDT Pulse 94 08/16/2024 11:08 AM EDT Temperature 36.5 C (97.7 F) 08/16/2024 11:08 AM EDT Respiratory Rate 20 08/09/2024 11:16 AM EDT Oxygen Saturation 97% 08/16/2024 11:08 AM EDT Inhaled Oxygen Concentration - - Weight 102 kg (225 lb 6.4 oz) 08/16/2024 11:08 A M EDT Height 160 cm (5' 3 ) 08/16/2024 11:08 AM EDT Body Mass Index 39.93 08/16/2024 11:08 AM EDT Plan of Treatment Health Maintenance Due Date Last Done Comments COVID-19 Vaccine ( season) 2023 12/18/2021, 12/18/2021, 11/27/2021, Additional history exists Influenza Vaccine (#1) 2024 4, 11/27/2021, 05/21/2020, Additional history exists Alcohol/Substance Use Screening 08/16/2025 08/16/2024 Depression Screening 08/16/2025 08/16/2024, 08/17/19 Disability Screening 08/16/2025 08/16/2024 Family Planning (PISQ) 08/16/2025 08/16/2024 SDOH Screening 08/16/2025 08/16/2024 Tobacco Screening 08/16/2025 08/16/2024 Lipid Panel 06/14/2028 06/15/2023 Cervical Cancer Screening [...] Years) and At-Risk Patients (6 to 49) Years Completed 06/11/2023 HIV Screening Completed 06/15/2023, 04/21/2019 Hepatitis C Screening Completed 06/15/2023, 020 Hepatitis A Vaccines Aged Out No long er eligible based on patient's age to complete this topic Meningococcal B Vaccine Aged Out No l onger eligible based on patient's age to complete this topic Meningococcal Vaccine Aged Out No katlyn olivia eligible based on patient's age to complete this topic RSV under 20 months Aged Out No longe r eligible based on patient's age to complete this topic Rotavirus Vaccines Aged Out No longer eligible based on patient's age to complete this topic Procedures Procedure Name Priority Date/Time Associated Diagnosis Comments T-SPOT(R).TB Routine 07/21/2024 8:59 AM EDT THINPREP IMAGING PAP AND HPV MRNA E6/E7 [...] Recently Relevant to Health Maintenance Results * T-SPOT??.TB (07/21/2024 8:59 AM EDT) T Spot TB Negative Negative [facility] Comment:A negative test resu lt does not exclude the possibilityof exposure to or infection with Mycobacteriumtuberculosis (M. tuberculosis). Patients with recentexposure to TB infected individuals exhibiting anegative T-SPOT.TB result should be considered forretesting within 6 weeks or if other relevant clinicalsymptoms indicate. Results from T-SPOT.TB testing mustbe used in conjunction with each individual'sepidemiological history, current medical status,and results of other diagnostic evaluations.The T-SPOT.TB test is qualitative and results arereported as positive, borderline, or negative, giventhat the test controls perform as expected. In linewith the Centers for Disease Control and Prevention's2010 recommendation to report quantitative measurementsalongside the qualitative result, the laboratoryprovides spot counts for informational purposes only.The T-SPOT.TB test should not be interpreted as aquantitative test. TS PANEL A 0 [facility] TS PANEL B 0 [facility] Negative Control Passed [facility] Positive Control Passed [facility] Comment:For additional infor mation, please refer tohttp://[employer]/faq/TOV346(This link is being provided for informational/educational purposes only.)REPORT COMMENT:REC'D IN CHYTHIS TEST WAS PERFORMED AT:[facility] [id number] [place] [id number] FLYNN MD,PHD 07/21/2024 8:59 AM EDT 07/21/2024 11:04 AM EDT Constance Garza MD LAB BLOOD ORDERABLES Final Result [facility] [address] [place] [address] [phone] * ThinPrep Imaging Pap and HPV mRNA E6/E7 with Reflex to HPV 16,18/45 (08/03/2023 10:10 AM EDT) HPV 16 RNA TNP [facility] HPV 18/45 RNA TNP [facility] HPV nRNA E6/E7 Not Detected Not Detected [facility] Comment:Methodology: Transcr iption-Mediated AmplificationThis assay detects E6/E7 viral messenger RNA (mRNA) from 14high-risk HPV types (16,18,31,33,35,39,45,51,52,56,58,59,66,68).Cervical sources are required for HPV testing.If a vaginal source from a patient who has had atotal hysterectomy with removal of cervix wassubmitted, please contact the testing laboratoryfor alternative testing options.For additional information, please refer tohttp://[employer]/faq/[email or web address](This link if provided for information/educational purposes only.)THIS TEST WAS PERFORMED AT:[facility] [address] [id number] QUEEN MD SOURCE: SEE NOTE [facility] Comment:Cervix Report Status: [facility] Clinical Information: SEE NOTE [facility] Comment:ROUTINE LMP: SEE NOTE [facility] Comment:NONE GIVEN Prev. PAP: SEE NOTE [facility] Comment:NONE GIVEN Prev. BX: SEE NOTE [facility] Comment:NONE GIVEN Statement Of Adequacy: SEE NOTE [facility] Comment:Satisfactory for lula luation.Endocervical/transformation zone componentpresent.Age and/or menstrual status not provided General Categorization: [facility] Interpretation/Result: SEE NOTE [facility] Comment:Cytology Results: Ne gative for intraepitheliallesion or malignancy. Cytology Comment SEE NOTE [facility] Comment:This Pap test has be en evaluated with computerassisted technology. Icing Mixer: SEE NOTE [facility] Comment:MRC, CT(ASCP) CT scr eening location: [place] [address] Review Icing Mixer: [facility] Pathologist [facility] PAP Infection [facility] See Note SEE NOTE [facility] Comment:EXPLANATORY NOTE:The Pap is a [...] AM EDT 08/04/2023 11:54 AM EDT Narrative [facility] - 08/10/2023 3:30 PM EDT SEE SCANNED RESULTS IN EMRROUTINECERVICAL us Irma Duval CNM LAB PATHOLOGY ORDERABLES Final Result [facility] [address] [place] [address] [phone] * Hepatitis C Antibody with Reflex to HCV, RNA, Quantitative, Real-Time PCR (06/15/2023 10:26 AM EDT) [facility] Hepatitis C Antibody Nonreactive Nonreactive [facility] Comment:Antibodies to HCV no t detected; does not exclude early acuteHCV infection. Blood Venous blood specimen / Unknown 06/15/2023 10:26 AM EDT 06/15/2023 11:50 AM EDT Constance Garza MD LAB BLOOD ORDERABLES Final Result Performing Organization Address City/[facility]/ZIP Co de Phone Number [facility] [address] [place] [address] [phone] HIV-1/2 Antigen and Antibodies, Fourth Generation, with Reflexes (06/15/2023 10:26 AM EDT) [facility] HIV AB/AG Nonreactive Nonreactive [facility] Comment:HIV-1 p24 Ag and/or HIV-1/HIV-2 Ab not detected.A test result that is nonreactive does not exclude thepossibility of exposure to or infection with HIV-1 and/orHIV-2. Nonreactive results in this assay for individualswith prior exposure to HIV-1 and/or HIV-2 may be due toantigen and antibody levels that are below the limit ofdetection of this assay.The [employer] HIV Ag/Ab Combo assay result andsupplemental assay results should be interpreted inconjunction with the patient's clinical presentation,history and other laboratory results. If the results areinconsistent with clinical evidence, additional testing issuggested to confirm the result. Blood Venous blood specimen / Unknown 06/15/2023 10:26 AM EDT 06/15/2023 11:50 AM EDT Constance Garza MD LAB BLOOD ORDERABLES Final Result Performing Organization Address City/[facility]/ZIP Co de Phone Number [facility] [address] [place] [address] [phone] * (ABNORMAL) Lipid Panel, Standard (06/15/2023 10:26 AM EDT) Triglycerides 66 <150 mg/dL [facility] Comment:Desirable Triglyceri de: less than 150 mg/dLBorderline High Triglyceride 150-199 mg/dLHigh Triglyceride: 200-499 mg/dLVery High Triglyceride: greater than or equal to 5OO mg/dL Cholesterol 161 <200 mg/dL [facility] Comment:Desirable Cholestero l: less than 200 mg/dLBorderline High Cholesterol: 200-239 mg/dLHigh Cholesterol: greater than 239 mg/dL LDL Cholesterol Calculated 105(H) <100 mg/dL [facility] Comment:Desirable LDL: less than 100 mg/dLNear Optimal/Above Optimal LDL: 110- 129 mg/dLBorderline High LDL: 130-159 mg/dLHigh LDL: 160-189 mg/dLVery High LDL: greater than or equal to 190 mg/dL HDL Cholesterol 43 >40 mg/dL [facility] Comment:Desirable HDL: great er than 40 mg/dL Note: This HDL assay may give artificially low results in patients with liver disease. Blood Venous blood specimen / Unknown 06/15/2023 10:26 AM EDT 06/15/2023 11:50 AM EDT Constance Garza MD LAB BLOOD ORDERABLES Final Result [facility] [address] [place] [phone] from Last 3 Months or Most Recently Relevant to Health Maintenance Insurance Conferen[employer] C3 Advance Directives Documents on File Type Date Recorded Patient Special Events Planner Expl anation Advance Directives and Living Will 06/18/2023 Health Care Proxy 07/01/23 Care Teams Supervisor Audit Clerks Relationship Specialty Start Date End Date Kayla, MD [employer] [address] [place] [phone] PCP - General Family Medicine 02/08/18
[2024-08-16 16:30] LABS: MANUAL DIFF FLAG NO
[2024-08-16 16:38] LABS: Hematocrit 40.5 % (37.0-47.0); Hemoglobin 13.6 g/dl (12.0-16.0); Imm Gran Abs Auto 0.01 X10*3/uL (0.00-0.03); Imm Gran Pct Auto 0.1 % (0.0-0.4); Lymphocytes Absolute Auto 2.9 X10*3/uL (1.2-4.9); Mean Corpuscular HGB Conc 33.6 g/dl (31.0-35.0); Mean Corpuscular Hemoglobin 28.6 pg (27.0-33.0); Mean Corpuscular Volume 85.3 fL (80.0-98.0); NRBC Abs Auto 0.000 X10*3/uL (0.0-0.012); NRBC Pct Auto 0.0 /100WBC (0.0-0.2); Platelet Count 327 X10*3/uL (160-400); Red Blood Count 4.75 X10*6/uL (4.20-5.50); White Blood Count 7.3 X10*3/uL (4.8-10.8)
[2024-08-16 16:51] LABS: Hemoglobin A1C 123.9505 umol/L; Total Hemoglobin (HGBA1C) 3561.2479 umol/L
[2024-08-16 16:58] LABS: Alanine Aminotransferase 32 U/L (0-31); Albumin Level 4.2 g/dL (3.5-5.0); Alkaline Phosphatase 78 U/L (39-117); Anion Gap 9 (12-20); Aspartate Amino Transferase 26 U/L (5-31); Blood Urea Nitrogen 13 mg/dL (9-16); Calcium 9.2 mg/dL (8.4-10.2); Carbon Dioxide 20 mmol/L (22-29); Chloride 113 mmol/L (96-108); Cholesterol 181 mg/dL (<200); Estimated Glomerular Filt Rate > 60; HDL Cholesterol 38 mg/dL (>40); Magnesium 2.2 mg/dL (1.6-2.6); Potassium 4.1 mmol/L (3.3-5.1); Sodium 138 mmol/L (135-145); Total Protein 7.4 g/dL (6.5-8.0); Triglycerides 91 mg/dL (<150)
== END 2024-08-16 11:44 | disposition home or self-care (01) ==
LOC: HO.HHCL 11:43
PROVIDERS: PCP Family Medicine; Visit Provider Family Medicine
DX: E66.9 Obesity, unspecified (principal); E78.5 Hyperlipidemia, unspecified; E55.9 Vitamin D deficiency, unspecified; F17.200 Nicotine dependence, unspecified, uncomplicated; Z86.32 Personal history of gestational diabetes
CPT/HCPCS: 36415; 80048; 80061; 80076; 82306; 83036; 83735; 84443; 85025